=== PATIENT | male | born 1955 | race Caucasian/White ===

== ENCOUNTER 2020-01-18 19:43 | Inpatient (IN) | payer SELFPAY ==
[2020-01-18 19:44] VITALS: BP 141/90; PULSE 132; RESP 20; TEMP 39.6; O2SAT 99; BMI 19.9
--- NOTE | 2020-01-18 19:49 | XRR_ITS ---
PROCEDURE INFORMATION: Exam: XR Chest, 1 View Exam date and time: 01/18/2020 8:21 PM Age: 64 years old Clinical indication: Cough and shortness of breath and other: Weakness TECHNIQUE: Imaging protocol: XR of the chest Views: 1 view. COMPARISON: No relevant prior studies available. FINDINGS: Lungs: COPD/chronic bronchitis/centrilobular emphysema. Pleural space: Unremarkable. No pleural effusion. No pneumothorax. Heart/Mediastinum: Arterial sclerosis. No cardiomegaly. Bones/joints: Degenerative disease and degenerative disc disease of the visualized spine. XR/XR chest 1V portable [id number] IMPRESSION: COPD/chronic bronchitis/central lobular emphysema
--- NOTE | 2020-01-18 19:50 | ECG_ITS ---
Measurements Intervals [place] Rate: 131 P: 76 VT: 146 QRS: 64 QRSD: 65 T: 78 QT: 278 QTc: 410 SINUS TACHYCARDIA WITH OCCASIONAL SUPRAVENTRICULAR PREMATURE COMPLEXES ABNORMAL RHYTHM ECG No previous ECG available for comparison Electronically Signed On 01-19-2020 8:01:01 CDT by Wyatt Lakhani [email or web address]
--- NOTE | 2020-01-18 19:52 | W.ED.FEVER ---
HPI - Fever General: Chief Complaint: Fever Stated Complaint: fever x 1 week Time Seen by Provider: 01/18/20 19:45 History of Present Illness: HPI Narrative: Sherman is a nice 64-year-old male who comes in complaining of fever and muscle aches for the past week. He states he is not been wanting to eat or drink very much. He has had a mild intermittent headache but denies any neck pain or stiffness. He denies cough, shortness of breath, abdominal pain, nausea/vomiting, diarrhea, skin rash or other complaint. He denies any chronic medical problems and does not take any medications on a regular basis. He is not been exposed to anybody sick that he is aware of. Associated symptoms: Reports chills; Deny abdominal pain, back/flank pain, chest pain, confusion, diarrhea, dysuria, extremity pain, headache(s), nausea or vomiting Review of Systems General: Reports: other (negative unless marked) Const: Reports: fever, chills, body aches, fatigue and malaise; Denies: diaphoresis Eyes: Denies: change in vision or blurry vision ENMT: Denies: throat pain, painful swallowing, hoarseness, ear pain, ear discharge, Change in hearing or nasal discharge Card: Denies: chest pain, palpitations, irregular heart rhythm, syncope, pre-syncope, shortness of breath on exertion or shortness of breath when lying down Resp: Denies: shortness of breath, productive cough, non-productive cough, wheezing, coughing up blood or chest congestion GI: Denies: abdominal pain, nausea, vomiting, vomiting blood, coffee grounds in vomit, diarrhea, constipation, cramping, blood in stool or black tarry stool : Denies: flank pain, difficulty urinating, painful urination, urinary frequency, urinary urgency, decreased urine ouput, urinary incontinence or blood in urine Musc: Denies: neck pain, back pain, extremity pain, extremity swelling, joint pain, joint swelling, joint warmth or joint stiffness Skin/Breast: Denies: rash, skin tenderness or yellow skin Neuro: Denies: headache, numbness in extremities, weakness in extremities, changes in sensation, lack of coordination, difficulty walking, dizziness, vertigo or confusion Endo: Denies: excessive thirst, tired all the time, cold intolerance, excessive sweating, flushing or hot flashes Isaias/Lymph: Denies: easy bruising, easy bleeding, petechiae or enlarged lymph nodes All/Imm: Denies: hives, throat swelling, tongue swelling, facial swelling or acute wheezing PFSH ED PFSH: Medical History (Updated 01/19/20 @ 01:29 by Angela Arnold) No pertinent past medical history Social History Smoking and tobacco status: current every day smoker Physical Exam Const: COMMON NORMALS: no apparent distress, oriented x3, no limitations, healthy appearing and well nourished EXAM LIMITATIONS: no altered mental status GENERAL APPEARANCE: cooperative, well kempt and well developed ORIENTATION/CONSCIOUSNESS: Yes awake HENMT: COMMON NORMALS: normocephalic, head/scalp atraumatic, hearing grossly normal bilaterally, external ears normal, EAC's normal, external nose normal and moist oral mucous membranes HEAD & SCALP: normal to inspection, normocephalic and atraumatic FACE & SINUS: normal facial exam and face symmetric NOSE: external nose normal and nares normal EXTERNAL EAR: Yes external ears normal EXTERNAL AUDITORY CANAL: EAC's normal MOUTH: oral and palatal mucosa normal and tongue normal Eye: COMMON NORMALS: PERRL, EOMs intact bilaterally, conjunctivae normal and no scleral icterus GENERAL EYE: normal appearance of both eyes and normal light reflex CONJUNCTIVA: Yes conjunctivae normal SCLERA: sclerae normal CORNEA: Yes corneas normal PUPIL: Yes PERRL DIRECT OPHTHALMOSCOPY: Yes normal light reflex Neck/C-Spine: COMMON NORMALS: full ROM, no lymphadenopathy, supple, no meningeal signs and no JVD GENERAL: Yes normal visual inspection and Yes trachea midline CERVICAL SPINE: Yes cervical ROM normal Chest: COMMONS NORMALS: inspection of chest normal and palpation of chest normal Resp: COMMON NORMALS: normal respiratory effort, no retractions, no use of accessory muscles and clear to auscultation bilaterally EFFORT & INSPECTION: Yes able to speak in complete sentences AUSCULTATION: clear to auscultation bilaterally, rhonchi and wheezes Cardio: COMMON NORMALS: no JVD, regular rate, regular rhythm, S1 normal heart sound, S2 normal heart sound, no gallops, no clicks, no murmurs and no rub JUGULAR VENOUS DISTENTION: no JVD RATE: regular rate RHYTHM: regular rhythm HEART SOUNDS: S1 normal and S2 normal GI: COMMON NORMALS: soft to palpation, non-tender, no hepatosplenomegaly and no masses INSPECTION: Yes normal to inspection PALPATION: Yes soft and Yes no hepatosplenomegaly : COMMON NORMALS: Yes no CVA tenderness BLADDER/KIDNEY EXAM: Yes no CVA tenderness Back/Pelvis: COMMON NORMALS: no CVA tenderness, thoracic and lumbar spine normal to inspection, no thoracic nor lumbar tenderness and thoraco-lumbar ROM normal Extremity: COMMON NORMALS: normal to inspection, full ROM, normal capillary refill, no joint enlargement, no clubbing, cyanosis or edema and no calf tenderness Neuro: COMMON NORMALS: oriented x3, CN's II-XII intact bilaterally, moves all extremities, no focal motor deficits and no sensory deficits noted MENINGEAL SIGNS: Yes no meningeal signs Psych: COMMON NORMALS: mental status grossly normal, thought process normal, cooperative, affect normal, speech normal and activity/motor behavior normal APPEARANCE: Yes well kempt SPEECH: Yes normal speech THOUGHT PROCESS: normal thought process Skin: COMMON NORMALS: no rashes or lesions noted, skin turgor normal, no jaundice, no petechiae and no mottling GENERAL SKIN EXAM: no rashes or lesions noted and turgor normal Course Vital Signs: Vital signs: Vital Signs Temperature 97.8 F 01/19/20 00:50 Pulse Rate 96 01/19/20 00:50 Respiratory Rate 24 H 01/19/20 00:50 Blood Pressure 101/67 01/19/20 00:50 Pulse Oximetry 96 01/19/20 00:50 MDM - Fever MDM Narrative: Medical decision making narrative: Mr. Greenwood is a nice 64-year-old male who comes in with a viral syndrome. His initial chest x-ray looks normal to me and his chest x-ray was read by the radiologist as normal. I did call the residential real estate assistant to confer about the possibility of COVID-19 and they stated that the patient did not meet criteria and did not need to be treated as such. Took the patient off of precautions and presented the case to Dr. Lindsey who wanted a CT scan to evaluate for the acute renal failure and UTI. CT scan did not show any sign of obstruction or renal problem but did reveal a left lower lobe pneumonia not seen on chest x-ray. The patient was given empiric doses of antibiotics. He was getting fluid boluses and his pressure was improving. The patient had gone to the floor before Dr. Lindsey had a chance to see him but after conferring with me again she wanted the patient tested by [facility] for COVID-19 and I notified the salesperson household appliances that the patient might need to be placed back on respiratory precautions until the results of this test were available. Lab Data: Attestation: I reviewed the patient's lab results. Labs: Lab Results 01/18/20 01/18/20 01/18/20 Range/Units 20:10 20:10 20:10 WBC 6.9 (4.0-10.0) 10^3/ uL RBC 4.61 (4.1-5.3) 10^6/u L Hgb 16.1 (11.7-16.6) g/dL Hct 47.0 (42.0-52.0) % MCV 102.0 H (80-94) fL MCH 34.9 H (28.0-34.0) pg MCHC 34.3 (30.0-36.0) g/dL RDW 12.0 L (12.1-15.1) % Plt Count 97 L (130-400) 10^3/c mm MPV 10.3 (7.4-10.4) fL Neut % (Auto) 90.8 % Lymph % (Auto) 2.6 % Schley % (Auto) 3.5 % Eos % (Auto) 0.0 % Baso % (Auto) 0.6 % Neut # (Auto) 6.3 (1.8-7.7) 10^3/u L Lymph # (Auto) 0.2 L (0.8-4.8) 10^3/u L Schley # (Auto) 0.2 (0.2-0.9) 10^3/u L Eos # (Auto) 0.0 (0.0-0.8) 10^3/u L Baso # (Auto) 0.0 (0.0-0.1) 10^3/u L Nucleated RBC % (a uto) 0 % Nucleated RBCs # 0.0 /100WBC Sodium 127 L (136-145) mmol/L Potassium 3.3 L (3.5-5.1) mmol/L Chloride 91 L (98-107) mmol/L Carbon Dioxide 15 L (22-29) mmol/L Anion Gap 24.3 H (5-19) BUN 33 H (8-23) mg/dL Creatinine 2.1 H (0.7-1.2) mg/dL GFR Calculation 32.0 L (90-130) mL/min Glucose 121 H (65-115) mg/dL Calculated Osmolal ity 263 L (285-295) mOsm/k g Lactic Acid 1.5 (0.5-2.2) mmol/L Calcium 8.5 (8.5-10.5) mg/dL Magnesium 2.6 H (1.7-2.3) mg/dL Total Bilirubin 0.3 (0.15-1.2) mg/dL AST 213 H (0-40) U/L ALT 41 (0-41) U/L Alkaline Phosphata se 36 L (40-130) IU/L Troponin T Baselin e (0-15) ng/mL Troponin T 120 Min [place] (0-15) ng/mL Delta Troponin T (0-10) ABS# Total Protein 6.0 L (6.6-8.7) g/dL Albumin 3.4 L (3.5-5.2) g/dL Globulin 2.6 (1.3-4.6) g/dL Urine Color (Yellow) Urine Appearance (CLEAR) Urine pH (5-7) Ur Specific Gravit y (1.005-1.030) Urine Protein (Negative) Urine Glucose (UA) (Normal) Urine Ketones (Negative) Urine Blood (Negative) Urine Nitrate (Negative) Urine Bilirubin (NEGATIVE) Urine Urobilinogen (Negative) mg/dL Ur Leukocyte Laura ase (Negative) Urine RBC (0-2) /hpf Urine WBC (0-5) /hpf Ur Squamous Epith Cells (0-5) Urine Bacteria (NONE) Fine Granular Cast s /lpf Influenza Type A A g (Negative) POC Influenza B Ag (Negative) 01/18/20 01/18/20 01/18/20 Range/Units 20:10 21:09 21:12 WBC (4.0-10.0) 10^3/ uL RBC (4.1-5.3) 10^6/u L Hgb (11.7-16.6) g/dL Hct (42.0-52.0) % MCV (80-94) fL MCH (28.0-34.0) pg MCHC (30.0-36.0) g/dL RDW (12.1-15.1) % Plt Count (130-400) 10^3/c mm MPV (7.4-10.4) fL Neut % (Auto) % Lymph % (Auto) % Schley % (Auto) % Eos % (Auto) % Baso % (Auto) % Neut # (Auto) (1.8-7.7) 10^3/u L Lymph # (Auto) (0.8-4.8) 10^3/u L Schley # (Auto) (0.2-0.9) 10^3/u L Eos # (Auto) (0.0-0.8) 10^3/u L Baso # (Auto) (0.0-0.1) 10^3/u L Nucleated RBC % (a uto) % Nucleated RBCs # /100WBC Sodium (136-145) mmol/L Potassium (3.5-5.1) mmol/L Chloride (98-107) mmol/L Carbon Dioxide (22-29) mmol/L Anion Gap (5-19) BUN (8-23) mg/dL Creatinine (0.7-1.2) mg/dL GFR Calculation (90-130) mL/min Glucose (65-115) mg/dL Calculated Osmolal ity (285-295) mOsm/k g Lactic Acid (0.5-2.2) mmol/L Calcium (8.5-10.5) mg/dL Magnesium (1.7-2.3) mg/dL Total Bilirubin (0.15-1.2) mg/dL AST (0-40) U/L ALT (0-41) U/L Alkaline Phosphata se (40-130) IU/L Troponin T Baselin e 96 H (0-15) ng/mL Troponin T 120 Min [place] (0-15) ng/mL Delta Troponin T (0-10) ABS# Total Protein (6.6-8.7) g/dL Albumin (3.5-5.2) g/dL Globulin (1.3-4.6) g/dL Urine Color Dark yellow (Yellow) Urine Appearance Cloudy (CLEAR) Urine pH 5 (5-7) Ur Specific Gravit y 1.025 (1.005-1.030) Urine Protein Trace (Negative) Urine Glucose (UA) Norm (Normal) Urine Ketones Negative (Negative) Urine Blood 3+ H (Negative) Urine Nitrate Negative (Negative) Urine Bilirubin Neg (NEGATIVE) Urine Urobilinogen Norm (Negative) mg/dL Ur Leukocyte Laura ase Negative (Negative) Urine RBC 0-4 H (0-2) /hpf Urine WBC 5-10 H (0-5) /hpf Ur Squamous Epith Cells 0-4 H (0-5) Urine Bacteria 2+ H (NONE) Fine Granular Cast s 0-4 H /lpf Influenza Type A A g Negative (Negative) POC Influenza B Ag Negative (Negative) 01/18/20 Range/Units 21:58 WBC (4.0-10.0) 10^3/ uL RBC (4.1-5.3) 10^6/u L Hgb (11.7-16.6) g/dL Hct (42.0-52.0) % MCV (80-94) fL MCH (28.0-34.0) pg MCHC (30.0-36.0) g/dL RDW (12.1-15.1) % Plt Count (130-400) 10^3/c mm MPV (7.4-10.4) fL Neut % (Auto) % Lymph % (Auto) % Schley % (Auto) % Eos % (Auto) % Baso % (Auto) % Neut # (Auto) (1.8-7.7) 10^3/u L Lymph # (Auto) (0.8-4.8) 10^3/u L Schley # (Auto) (0.2-0.9) 10^3/u L Eos # (Auto) (0.0-0.8) 10^3/u L Baso # (Auto) (0.0-0.1) 10^3/u L Nucleated RBC % (a uto) % Nucleated RBCs # /100WBC Sodium (136-145) mmol/L Potassium (3.5-5.1) mmol/L Chloride (98-107) mmol/L Carbon Dioxide (22-29) mmol/L Anion Gap (5-19) BUN (8-23) mg/dL Creatinine (0.7-1.2) mg/dL GFR Calculation (90-130) mL/min Glucose (65-115) mg/dL Calculated Osmolal ity (285-295) mOsm/k g Lactic Acid (0.5-2.2) mmol/L Calcium (8.5-10.5) mg/dL Magnesium (1.7-2.3) mg/dL Total Bilirubin (0.15-1.2) mg/dL AST (0-40) U/L ALT (0-41) U/L Alkaline Phosphata se (40-130) IU/L Troponin T Baselin e (0-15) ng/mL Troponin T 120 Min [place] 110.2 H (0-15) ng/mL Delta Troponin T 14.2 H* (0-10) ABS# Total Protein (6.6-8.7) g/dL Albumin (3.5-5.2) g/dL Globulin (1.3-4.6) g/dL Urine Color (Yellow) Urine Appearance (CLEAR) Urine pH (5-7) Ur Specific Gravit y (1.005-1.030) Urine Protein (Negative) Urine Glucose (UA) (Normal) Urine Ketones (Negative) Urine Blood (Negative) Urine Nitrate (Negative) Urine Bilirubin (NEGATIVE) Urine Urobilinogen (Negative) mg/dL Ur Leukocyte Laura ase (Negative) Urine RBC (0-2) /hpf Urine WBC (0-5) /hpf Ur Squamous Epith Cells (0-5) Urine Bacteria (NONE) Fine Granular Cast s /lpf Influenza Type A A g (Negative) POC Influenza B Ag (Negative) Imaging Data^: CXR: My impression: No acute cardiopulmonary findings Radiologist's impression: [address] [place] [address] XRay Report Signed Patient: Sherman Greenwood Unit #: [id number] : 1955 Age/Sex: 64 / M ADM Date: 01/18/20 Loc: ER Room/Bed: Attending Dr: Ordering Provider/Ordering MD: Angela Arnold DO Date of Service: 01/18/20 Procedure(s): XR chest 1V portable [id number] Accession Number(s): [id number] Report Number: [id number] PROCEDURE INFORMATION: Exam: XR Chest, 1 View Exam date and time: 01/18/2020 8:21 PM Age: 64 years old Clinical indication: Cough and shortness of breath and other: Weakness TECHNIQUE: Imaging protocol: XR of the chest Views: 1 view. COMPARISON: No relevant prior studies available. FINDINGS: Lungs: COPD/chronic bronchitis/centrilobular emphysema. Pleural space: Unremarkable. No pleural effusion. No pneumothorax. Heart/Mediastinum: Arterial sclerosis. No cardiomegaly. Bones/joints: Degenerative disease and degenerative disc disease of the visualized spine. XR/XR chest 1V portable [id number] IMPRESSION: COPD/chronic bronchitis/central lobular emphysema Dictated By: Omari Kim Signed By: Omari Kim Signed Date/Time: 01/18/202037 DD/ 35 CT Abd/Pel: Radiologist's impression: [place] [address] CT Scan Report Signed Patient: Sherman Greenwood Unit #: [id number] : 1955 Age/Sex: 64 / M ADM Date: 01/18/20 Loc: ER Room/Bed: Attending Dr: Ordering Provider/Ordering MD: Angela Arnold DO Date of Service: 01/18/20 Procedure(s): CT kidney stone [id number] Accession Number(s): [id number] Report Number: [id number] PROCEDURE INFORMATION: Exam: CT Abdomen And Pelvis Without Contrast Exam date and time: 01/18/2020 11:26 PM Age: 64 years old Clinical indication: Abdominal pain; Right; Patient HX: Bilat flank pain; Additional info: Flank/abdominal pain TECHNIQUE: Imaging protocol: Computed tomography of the abdomen and pelvis without contrast. Total DLP: 513.77 mGy-cm Radiation optimization: All CT scans at this facility use at least one of these dose optimization techniques: automated exposure control; mA and/or kV adjustment per patient size (includes targeted exams where dose is matched to clinical indication); or iterative reconstruction. COMPARISON: No relevant prior studies available. FINDINGS: Lungs: Limited assessment lung bases reveals a densely consolidated alveolar airspace disease process of multi segmental volume left lower lobe with air bronchograms consistent with left lower lobe pneumonia. COPD/chronic bronchitis. Minimal dependent atelectasis right lung base. Liver: Unremarkable. No mass. Gallbladder and bile ducts: Gallbladder contracted. No visible cholelithiasis. No visible intra or extrahepatic biliary ectasia. No visible choledocholithiasis. Pancreas: Pancreas unremarkable. No visible pancreatic ductal ectasia. Spleen: Calcified splenic granulomas. Adrenals: Adrenal glands unremarkable. Kidneys and ureters: No visible hydronephrosis, hydroureter, ureterolithiasis, or bladder stone. Note of a 3.6 mm nonobstructing calyceal nephrolithiasis at the equator and a 2nd small (less than 3 mm) nonobstructing calyceal nephrolithiasis focus inferior pole left kidney. No visible nephrocalcinosis. Stomach and bowel: Nonobstructive bowel pattern. No visible diverticulitis or significant diverticulosis coli. No visible adynamic or reactive ileus. Appendix: Appendix noninflamed. Intraperitoneal space: No visible intraperitoneal ascites. No visible mesenteric lymphadenitis or mesenteritis/panniculitis. Vasculature: Three-vessel coronary artery disease. The abdominal aorta is nonaneurysmal but demonstrates extensive arterial sclerotic disease. Lymph nodes: Unremarkable. No enlarged lymph nodes. Bladder: Unremarkable as visualized. Reproductive: Prostate hypertrophy. Bones/joints: Previous right hip pinning. Advanced degenerative disease and degenerative disc disease with disc space height loss and vacuum disc phenomenon L3/L4 and L5/S1. Facet arthrosis. Soft tissues: Unremarkable. CT/CT kidney stone [id number] IMPRESSION: 1. Left lower lobe pneumonia. 2. No visible active or acute abdominal or pelvic pathologic process. 3. Nonobstructing calyceal nephrolithiasis foci left kidney. 4. No evidence of hydronephrosis, hydroureter, or ureterolithiasis. 5. Numerous other non urgent/nonemergent, chronic, and age related findings discussed in text above. Radiation Dose CTDIVOL = (mGy): DLP = 513.77 (mGy-cm) Dictated By: Omari Kim Signed By: Omari Kim Signed Date/Time: 01/19/20 0001 DD/ 0000 Discharge Plan Discharge Patient Disposition: Admitted As Inpatient Admit Provider: Jen Lindsey Clinical Impression: Sepsis, Pneumonia, Acute UTI Condition: Stable Interventions: ED Discharge Assessment Last Done: 01/19/20 00:26 Discharge Date/Time: 01/19/20 00:41 Coding Level of Care Code ED Entertainment Manager for [employer] Fwd Exam Comprehensive
[2020-01-18] MEDS: acetaminophen 500 mg Tablet 1000 MG PO (20:21)
[2020-01-18] MEDS: ondansetron 2 mg/ML SDV 2 mL 4 MG IVP ×2 (20:21→21:13)
[2020-01-18] MEDS: piperacillin-tazobactam 3.375 GM in sodium chloride 0.9% (plus) 50 ML IV (20:21)
[2020-01-18 20:22] LABS: Basophils % 0.6 %; Hemoglobin 16.1 g/dL (11.7-16.6); Lymphocytes # 0.2 10^3/uL (0.8-4.8); Lymphocytes % 2.6 %; Mean Corpuscular HGB Conc 34.3 g/dL (30.0-36.0); Mean Corpuscular Hemoglobin 34.9 pg (28.0-34.0); Mean Platelet Volume 10.3 fL (7.4-10.4); Monocytes # 0.2 10^3/uL (0.2-0.9); Monocytes % 3.5 %; Neutrophils # 6.3 10^3/uL (1.8-7.7); Neutrophils % 90.8 %; Nucleated Red Blood Cells % 0 %; Platelet Count 97 10^3/cmm (130-400); Red Blood Count 4.61 10^6/uL (4.1-5.3); White Blood Count 6.9 10^3/uL (4.0-10.0)
[2020-01-18 20:37] LABS: Lactic Sepsis W/Reflex 1.5 mmol/L (0.5-2.2); Troponin(5th) Baseline 96 ng/mL (0-15)
[2020-01-18 20:49] LABS: Alanine Aminotransferase 41 U/L (0-41); Albumin Level 3.4 g/dL (3.5-5.2); Alkaline Phosphatase 36 IU/L (40-130); Anion Gap 24.3 (5-19); Aspartate Amino Transferase 213 U/L (0-40); Blood Urea Nitrogen 33 mg/dL (8-23); Calcium 8.5 mg/dL (8.5-10.5); Carbon Dioxide 15 mmol/L (22-29); Chloride 91 mmol/L (98-107); Globulin 2.6 g/dL (1.3-4.6); Glucose 121 mg/dL (65-115); Magnesium 2.6 mg/dL (1.7-2.3); Osmolality Calculated 263 mOsm/kg (285-295); Potassium 3.3 mmol/L (3.5-5.1); Sodium 127 mmol/L (136-145); Total Bilirubin 0.3 mg/dL (0.15-1.2)
--- NOTE | 2020-01-18 21:50 | ECG_ITS ---
Measurements Intervals [place] Rate: 102 P: 78 CA: 147 QRS: 75 QRSD: 63 T: 69 QT: 347 QTc: 454 SINUS TACHYCARDIA WITH OCCASIONAL SUPRAVENTRICULAR PREMATURE COMPLEXES ABNORMAL RHYTHM ECG No previous ECG available for comparison Electronically Signed On 01-19-2020 8:09:56 CDT by Wyatt Lakhani [id number]
[2020-01-18 22:03] VITALS: TEMP 37.7
[2020-01-18 22:05] LABS: Influenza A by IFA Negative (Negative); Influenza B by IFA Negative (Negative)
[2020-01-18 22:26] LABS: Bacteria Urine 2+; Bilirubin Urine Neg (NEGATIVE); Blood Urine 3+ (Negative); Fine Granular Casts Urine 0-4 /lpf; Glucose Urine UA Norm (Normal); Ketones Urine Negative (Negative); Leukocyte Esterase Urine Negative (Negative); Nitrate Urine Negative (Negative); Protein Urine Trace (Negative); RBC Urine 0-4 /hpf (0-2); Specific Gravity, Urine 1.025 (1.005-1.030); Squamous Epithelial Cell Urine 0-4 (0-5); Urine Appearance Cloudy (CLEAR); Urine Color Dark Yellow (Yellow); Urobilinogen Urine Norm (Negative); pH Urine 5 (5-7)
[2020-01-18 22:27] LABS: Add Urine Culture? No
[2020-01-18 22:46] VITALS: BP 89/60; PULSE 90; O2SAT 94
[2020-01-18 22:54] LABS: Troponin 5 2HR 110.2 ng/mL (0-15); Troponin 5 2HR Delta 14.2 ABS# (0-10)
[2020-01-18 23:00] VITALS: BP 91/59; PULSE 96; RESP 20; O2SAT 95
--- NOTE | 2020-01-18 23:25 | CTR_ITS ---
PROCEDURE INFORMATION: Exam: CT Abdomen And Pelvis Without Contrast Exam date and time: 01/18/2020 11:26 PM Age: 64 years old Clinical indication: Abdominal pain; Right; Patient HX: Bilat flank pain; Additional info: Flank/abdominal pain TECHNIQUE: Imaging protocol: Computed tomography of the abdomen and pelvis without contrast. Total DLP: 513.77 mGy-cm Radiation optimization: All CT scans at this facility use at least one of these dose optimization techniques: automated exposure control; mA and/or kV adjustment per patient size (includes targeted exams where dose is matched to clinical indication); or iterative reconstruction. COMPARISON: No relevant prior studies available. FINDINGS: Lungs: Limited assessment lung bases reveals a densely consolidated alveolar airspace disease process of multi segmental volume left lower lobe with air bronchograms consistent with left lower lobe pneumonia. COPD/chronic bronchitis. Minimal dependent atelectasis right lung base. Liver: Unremarkable. No mass. Gallbladder and bile ducts: Gallbladder contracted. No visible cholelithiasis. No visible intra or extrahepatic biliary ectasia. No visible choledocholithiasis. Pancreas: Pancreas unremarkable. No visible pancreatic ductal ectasia. Spleen: Calcified splenic granulomas. Adrenals: Adrenal glands unremarkable. Kidneys and ureters: No visible hydronephrosis, hydroureter, ureterolithiasis, or bladder stone. Note of a 3.6 mm nonobstructing calyceal nephrolithiasis at the equator and a 2nd small (less than 3 mm) nonobstructing calyceal nephrolithiasis focus inferior pole left kidney. No visible nephrocalcinosis. Stomach and bowel: Nonobstructive bowel pattern. No visible diverticulitis or significant diverticulosis coli. No visible adynamic or reactive ileus. Appendix: Appendix noninflamed. Intraperitoneal space: No visible intraperitoneal ascites. No visible mesenteric lymphadenitis or mesenteritis/panniculitis. Vasculature: Three-vessel coronary artery disease. The abdominal aorta is nonaneurysmal but demonstrates extensive arterial sclerotic disease. Lymph nodes: Unremarkable. No enlarged lymph nodes. Bladder: Unremarkable as visualized. Reproductive: Prostate hypertrophy. Bones/joints: Previous right hip pinning. Advanced degenerative disease and degenerative disc disease with disc space height loss and vacuum disc phenomenon L3/L4 and L5/S1. Facet arthrosis. Soft tissues: Unremarkable. CT/CT kidney stone [id number] IMPRESSION: 1. Left lower lobe pneumonia. 2. No visible active or acute abdominal or pelvic pathologic process. 3. Nonobstructing calyceal nephrolithiasis foci left kidney. 4. No evidence of hydronephrosis, hydroureter, or ureterolithiasis. 5. Numerous other non urgent/nonemergent, chronic, and age related findings discussed in text above. Radiation Dose CTDIVOL = (mGy): DLP = 513.77 (mGy-cm)
[2020-01-18 23:47] VITALS: BP 96/72; PULSE 84; RESP 18; O2SAT 97
[2020-01-19] VITALS (116 sets, daily range): BP systolic 86–148; BP diastolic 50–93; PULSE 76–144; RESP 14–46; TEMP 36.6–38.4; O2SAT 81–100
--- NOTE | 2020-01-19 01:50 | ECG_ITS ---
Measurements Intervals [place] Rate: 99 P: 89 FL: 161 QRS: 74 QRSD: 66 T: 77 QT: 359 QTc: 461 SINUS RHYTHM WITH FREQUENT SUPRAVENTRICULAR PREMATURE COMPLEXES LOW QRS VOLTAGE IN PRECORDIAL LEADS [QRS DEFLECTION < 1.0 mV IN CHEST LEADS] ABNORMAL RHYTHM ECG No previous ECG available for comparison Electronically Signed On 01-19-2020 8:09:52 CDT by Wyatt Lakhani [id number]
[2020-01-19] MEDS: sodium chloride 0.9% 1,000 ML 150 ML IV ×2 (01:53→09:36)
--- NOTE | 2020-01-19 01:55 | PC.NURSE ---
patient transferred to room 1 for private room for patient safety measures. this nurse informed patient that due to the pending labs, nurses would be clustering care. nurse explained to patient that he has his call light and telephone at bedside to communicate with staff and family members at this time. patient expressed that he understood and agreed with plan.
[2020-01-19 02:50] LABS: Basophils % 0.3 %; Hematocrit 41.2 % (42.0-52.0); Lymphocytes # 0.4 10^3/uL (0.8-4.8); Lymphocytes % 6.1 %; Mean Corpuscular Hemoglobin 34.5 pg (28.0-34.0); Mean Corpuscular Volume 101.5 fL (80-94); Mean Platelet Volume 10.5 fL (7.4-10.4); Monocytes # 0.2 10^3/uL (0.2-0.9); Monocytes % 3.3 %; Neutrophils # 5.1 10^3/uL (1.8-7.7); Neutrophils % 88.6 %; Nucleated Red Blood Cells % 0 %; Platelet Count 89 10^3/cmm (130-400); Red Blood Count 4.06 10^6/uL (4.1-5.3); Red Cell Distribution Width 12.2 % (12.1-15.1); White Blood Count 5.7 10^3/uL (4.0-10.0)
[2020-01-19 03:15] LABS: Anion Gap 18.2 (5-19); Blood Urea Nitrogen 31 mg/dL (8-23); Calcium 7.4 mg/dL (8.5-10.5); Carbon Dioxide 20 mmol/L (22-29); Chloride 95 mmol/L (98-107); Glomerular Filtration Rate 40.8 mL/min (90-130); Glucose 110 mg/dL (65-115); Osmolality Calculated 268 mOsm/kg (285-295); Potassium 3.2 mmol/L (3.5-5.1); Sodium 130 mmol/L (136-145)
[2020-01-19 03:18] LABS: Troponin 5 6HR 77.54 ng/mL (0-15)
[2020-01-19 03:19] LABS: Troponin 5 6HR Delta -18.46 ng/L (0-12)
--- NOTE | 2020-01-19 03:29 | P.HP_ITS ---
Providers/Chief Complaint Admitting Physician: Jen Lindsey MD Chief Complaint: fever x 1 week History of Present Illness Sherman Greenwood is a 64 year old male without any significant PMH (has not seen a HCP in several years) presents with one week of fever and dry cough. It is somewhat difficult to obtain a history from him as he remains guarded with information. States that fever and chils started about a week ago. he has additionally been having intermittent diarrhea over this same period, which is unusual for him. C/o also of chronic cough which he attributes to smoking, without any recent worsening. No h/o expectoration. weakness, fatigue+. Today his brother in law came to visit him, noted him to be sick and called EMS. patient otherwise lives by himself. No recent h/o travel, no h/o sick contacts Upon arrival at Er he was noted to be tremulous, febrile to 103F, 02 sat 96-99% on room air. His plt count is at 89, however he appears to have a baseline thrombocytopenia. No leukocytosis. Labs notable for hyponatremia with Na 127, hypokalemia K 3.3, Kali with cr 2.1, elevated tropin with 2 hr delta of 14 and then 6 hr delta of -18. AST elevated at 213, UA with negative LA and nitrite. Wbc 5-10. Ct abdomen without acute abnormalities, however revealed LLL pneumonia. Daily smoker+. Daily alcohol intake+ 3-5 beers everyday. Review of Systems General: Reports: 10 or more systems reviewed and unremarkable except in HPI and below Const: Reports: fever, chills and body aches Eyes: Denies: change in vision, blurry vision or photophobia ENMT: Reports: hoarseness; Denies: throat pain, enlarged tonsils, painful swallowing or nasal congestion Card: Denies: chest pain, palpitations, irregular heart rhythm, edema, swelling of feet/ankles, lightheadedness, pre-syncope, shortness of breath on exertion or shortness of breath when lying down Resp: Reports: shortness of breath and non-productive cough; Denies: productive cough, wheezing, stridor, pain on inspiration, change in phlegm color, coughing up blood or chest congestion GI: Denies: abdominal pain, nausea, vomiting, vomiting blood, coffee grounds in vomit, difficulty swallowing, heartburn/indigestion, diarrhea, constipation, cramping, change in stool character, blood in stool or black tarry stool : Denies: flank pain, painful urination, urinary frequency, urinary urgency, urinary hesitancy or blood in urine Musc: Denies: neck pain, back pain, extremity pain, joint swelling, joint warmth or deformity Neuro: Denies: headache, numbness in extremities, weakness in extremities, changes in sensation, difficulty walking, frequent falls, dizziness, vertigo, behavioral changes, slurred speech or seizure-like activity Psych: Denies: anxiety, depression, suicidal ideation or homicidal ideation Endo: Denies: excessive urination, excessive thirst, tired all the time, cold intolerance or hot flashes Isaias/Lymph: Denies: easy bruising or easy bleeding Medications/Allergies Home Medications Medication Instructions Recorded Confirmed Last Taken Type acetaminophen-codeine 1 tab PO Q4H PRN 01/18/20 01/18/20 Unknown History [Tylenol-Codeine #4] Allergies Allergy/AdvReac Type Severity Reaction Status Date / Time meperidine [From Demerol] Allergy ADR-Nausea Verified 01/18/20 19:53 PFSH Acute PFSH: Medical History (Updated 01/19/20 @ 03:58 by Jen Lindsey MD) No pertinent past medical history Surgical History History of right hip replacement Social History Smoking and tobacco status: current every day smoker Vitals/I&O/Wt Last Vital Signs Temp 97.8 F 01/19/20 00:50 Pulse 96 01/19/20 00:50 Resp 24 H 01/19/20 00:50 BP 101/67 01/19/20 00:50 Pulse Ox 96 01/19/20 00:50 01/18/20 01/18/20 01/19/20 14:59 22:59 06:59 Intake Total 1890.8 / 1890.8 Balance 1890.8 / 1890.8 Weight last 48 hrs Weight 61.235 kg Physical Exam Narrative: EXAM NARRATIVE: GEN: Awake, alert and oriented, no acute distress CVS: S1S2 N RS: CTA B/L, coarse crepts left lower lobe. Abd: Soft, nt/nd , bs+ MAINTENANCE TEAM MEMBER: no focal neuro deficits Data : 01/19/20 02:31 01/19/20 02:31 Micro: Microbiology 01/18/20 20:16 Blood Culture - Preliminary Blood SPECIMEN COLLECTED 01/18/20 20:10 Blood Culture - Preliminary Blood SPECIMEN COLLECTED A&P Assessment and plan (1) Sepsis: Status: Acute Qualifiers: Acute renal failure type: unspecified Sepsis acute organ dysfunction status: with acute organ dysfunction Sepsis type: sepsis due to unspecified organism Severe sepsis acute organ dysfunction type: acute renal failure Severe sepsis shock status: without septic shock Qualified Code(s): A41.9 - Sepsis, unspecified organism; R65.20 - Severe sepsis without septic shock; N17.9 - Acute kidney failure, unspecified Code(s): A41.9 - Sepsis, unspecified organism (2) Pneumonia: Status: Acute Qualifiers: Laterality: left Lung location: lower lobe of lung Pneumonia type: due to unspecified organism Qualified Code(s): J18.9 - Pneumonia, unspecified organism Code(s): J18.9 - Pneumonia, unspecified organism (3) Alcohol withdrawal: Status: Acute Code(s): F10.239 - Alcohol dependence with withdrawal, unspecified (4) KALI (acute kidney injury): Status: Acute Code(s): N17.9 - Acute kidney failure, unspecified (5) Hyponatremia: Status: Acute Code(s): E87.1 - Hypo-osmolality and hyponatremia (6) Hypokalemia: Status: Acute Code(s): E87.6 - Hypokalemia (7) Demand ischemia: Status: Acute Code(s): I24.8 - Other forms of acute ischemic heart disease (8) Thrombocytopenia: Status: Acute Code(s): D69.6 - Thrombocytopenia, unspecified Additional A&P Information Admit to CSU 1. Sepsis likely secondary to LLL pneumonia Meets criteria with fever, tachycardia, tachypnea Initial BP with SBP 90s, improved after 2L IVF, currently at 101/67 Continue IVF @ 150cc/hr Started on Zosyn in the Er, will continue same for now. Add azithromycin 500mg x 3 days Influenza negative. Albuterol inhalation prn supplemetal 02 to keep 02 sat > 92% COVID 19 initially declined by state based on negative CXR in spite of fever and respiratory symptoms. ERP attempted to call back state with updated information regarding pneumonia noted on CT, however there was no response. Will send COVID 19 testing to [facility]. Maintain isolation precautions until then. Blood cx sputum gram stain and cx MRSA PCR screen 2. KALI likely 2/2 sepsis, IVF as above, trend cr 3. troponin leak, no acute St-t changes on EKG, baseline troponin 110, first delta 14, 6 hr delta negative. Likely represents demand ischemia from sepsis. 3. Visible tremors, patient reports feeling cold, however tremors noticeable even after fever resolved, suspect component of alcohol withdrawal CIWA monitoring with prn ativan drinks 3-5 beers daily 4. nicotine dependence : offered nicotine patch but declined 5. thrombocytopenia, appears to be chronic DVt ppx: heparin for now, may need to be discontinued based on platelet count trend Full code Attestations Medical Necessity Statement*: anticipate > 2midnight admission for sepsis, pneumonia, iv antibiotics Coding Level of Care Code Acute Controller Operations And Hr Manager for [facility] Fwd Diagnoses Sepsis A41.9; R65.20; N17.9 Acute renal failure type: unspecified Sepsis acute organ dysfunction status: with acute organ dysfunction Sepsis type: sepsis due to unspecified organism Severe sepsis acute organ dysfunction type: acute renal failure Severe sepsis shock status: without septic shock Pneumonia J18.9 Laterality: left Lung location: lower lobe of lung Pneumonia type: due to unspecified organism Alcohol withdrawal F10.239 KALI (acute kidney injury) N17.9 Hyponatremia E87.1 Hypokalemia E87.6 Demand ischemia I24.8 Thrombocytopenia D69.6
[2020-01-19] MEDS: ipratropium-albuterol 3 mL Neb INHALATION ×5 (04:26→21:00)
[2020-01-19 04:38] LABS: Amphetamines Screen Urine Negative (Negative); Barbiturates Screen Urine Negative (Negative); Benzodiazepines Screen Urine Negative (Negative); Cocaine Screen Urine Negative (Negative); Opiate Screen Urine Negative (Negative); PCP Screen Urine Negative (Negative); THC Screen Urine Negative (Negative)
[2020-01-19 04:39] LABS: Alanine Aminotransferase 41 U/L (0-41); Albumin Level 2.7 g/dL (3.5-5.2); Alkaline Phosphatase 30 IU/L (40-130); Aspartate Amino Transferase 225 U/L (0-40); Chol HDL Ratio 2.63 mg/dL (1.0-5.00); Cholesterol 71 mg/dL (0-200); HDL Cholesterol 27 mg/dL (60-100); LDL Cholesterol Calculated 24 mg/dL (50-129); LDL HDL Ratio 0.89 RATIO (0.00-3.22); Lipase 33 U/L (13-60); Total Bilirubin 0.3 mg/dL (0.15-1.2); Triglycerides 102 mg/dL (0-150)
[2020-01-19 04:40] LABS: Estmated Average Glucose 117; Hemoglobin A1C 5.7 % (4.0-6.0)
[2020-01-19 04:48] LABS: Alcohol Level < 10 mg/dL (0-10)
--- NOTE | 2020-01-19 05:08 | PC.NURSE ---
upon entering room, patient noted to be trembling and slightly diaphoretic. CIWA performed on patient and patient scored a 7. notified of patient score/ how patient presents. verbal order for 0.5mg Ativan oral NOW given by doctor.
[2020-01-19] MEDS: LORazepam 0.5 mg Tablet PO (05:16)
[2020-01-19] MEDS: heparin 5,000 unit/mL INJ 1 mL 5000 UNIT SUBCUT ×2 (05:17→15:57)
[2020-01-19] MEDS: piperacillin-tazobactam 3.375 GM in sodium chloride 0.9% (plus) 50 ML IV ×3 (05:17→19:47)
[2020-01-19] MEDS: acetaminophen 325 mg Tablet 650 MG PO ×2 (05:40→11:19)
--- NOTE | 2020-01-19 05:51 | PC.NURSE ---
upon entering the room patient asked got your partner with you again? nurse was alone in room. explained to patient that it was just this nurse. patient has temp of 101.1. Tylenol given per PRN order. patient knows he is at [facility] and knows his name/. patient believes he has the covid virus and states that it tastes peperish . notified of patient change in mental status.
--- NOTE | 2020-01-19 06:37 | PC.NURSE ---
upon entering the room patient was half way out of the bed.patients phone was on the ground and patient he was trying to get it. patient stated that the brownies over there . informed patient that if he needs to get out of bed to press the call light. CIWA reassessed by this nurse and now rates at an 8. patient is able to state his name//todays date. patients temp is now 101.2 orally. this nurse recommends a room closer to the nurses station or transfer to ICU for patient safety and closer monitoring. notified of patient attempting to get out of bed and temp. to come see.
[2020-01-19] MEDS: azithromycin 250 mg Tablet 500 MG PO (09:07)
[2020-01-19] MEDS: multivitamin therapeutic Tablet 1 TAB PO (09:07)
[2020-01-19] MEDS: thiamine 100 mg Tablet PO (09:08)
[2020-01-19] MEDS: folic acid 1 mg Tablet PO (09:08)
[2020-01-19] MEDS: lactated ringers 1,000 ML 999 ML ×2 (09:23→14:06)
[2020-01-19] MEDS: LORazepam 2 mg/mL INJ 1 mL 1 MG IM (10:07)
[2020-01-19 10:31] LABS: ABG PCO2 29.7 mmHg (35-45); ABG PH Result 7.34 (7.35-7.45); Arterial Blood Gas Hematocrit 50.3 % (42-52); Base Excess ABG -8.1 mmol/L (-2.0-2.0); Blood Gas Allen Test Pos; Blood Gas Sample Site Radial, right; Blood Gas Sample Type Arterial; HCO3 ABG 16.1 mmol/L (22-26); Oxygen Device NC
[2020-01-19] MEDS: potassium chloride premix 40 MEQ/100 ML PREMIX 25 MEQ IV (10:35)
--- NOTE | 2020-01-19 10:35 | USCV_ITS ---
Sherman Greenwood Age: 64 Gender: M : 1955 Exam Date: 01/19/2020 16:17 Ordering Phys: Lars Dietz MD Technologist: Eri Segal Exam Location: [facility] [place] Indication: Shortness of breath BP: 100 / 50 HR: 80 Rhythm: Sinus Technical Quality: MEASUREMENTS (Male / Female) Normal Values 2D ECHO LV Diastolic Diameter PLAX 4.2 cm 4.2 - 5.9 / 3.9 - 5.3 cm LV Systolic Diameter PLAX 3.6 cm LV Chamber Size 3.1 cm IVS Diastolic Thickness 0.8 cm 0.6 - 1.0 / 0.6 - 0.9 cm IVS Systolic Thickness 0.8 cm LVPW Diastolic Thickness 0.6 cm 0.6 - 1.0 / 0.6 - 0.9 cm LVPW Systolic Thickness 1.0 cm RV Chamber Size 2.4 cm LVOT Diameter 2.1 cm LV Ejection Fraction 2D Teich 32.7 % LV Ejection Fraction MOD 2C 60.3 % LV Ejection Fraction 2C AL 61.8 % LA Diameter 2.2 cm LA Width 3.2 cm LA Height 4.9 cm RA Width 2.3 cm RA Height 4.1 cm Aorta at Sinotubular Diameter 3.4 cm M-MODE LV Diastolic Diameter MM 3.9 cm 4.2 - 5.9 / 3.9 - 5.3 cm LV Systolic Diameter MM 3.2 cm LV Ejection Fraction MM Teich 35.3 % IVS Diastolic Thickness MM 1.5 cm 0.6 - 1.0 / 0.6 - 0.9 cm IVS Systolic Thickness MM 1.2 cm LVPW Diastolic Thickness MM 1.3 cm 0.6 - 1.0 / 0.6 - 0.9 cm LVPW Systolic Thickness MM 1.6 cm Aortic Annulus Diameter 3.7 cm LA Ao Ratio MM 0.6 MV E Point Septal Separation 0.9 cm DOPPLER AV Peak Velocity 71.0 cm/s LVOT Peak Velocity 57.0 cm/s AV Area Cont Eq vti 2.7 cm squared AV Area Cont Eq pk 2.9 cm squared MV Area PHT 4.3 cm squared Mitral E to A Ratio 0.8 MV E' Velocity 7.0 cm/s Mitral E to MV E' Ratio 8.7 Mitral E to LV E' Lateral Ratio 9.1 Mitral E to LV E' Septal Ratio 8.5 TR Peak Velocity 221.0 cm/s TR Peak Gradient 19.5 mmHg TV Peak E Velocity 48.0 cm/s Right Atrial Pressure 15.0 mmHg Pulmonary Artery Systolic Pressu 34.5 mmHg PV Peak Velocity 50.0 cm/s RV Acceleration Time 0.1 s RV Ejection Time 0.2 s RV AcT/ET 0.4 FINDINGS Left Ventricle Possibly normal LV size ejection fraction of 55%. Some features of grade 1 left ventricular diastolic dysfunction Right Ventricle Possibly normal size ejection fraction Right Atrium Possibly of normal size Left Atrium The left atrium is normal in size. Mitral Valve Thickened mitral valve. Aortic Valve Structurally normal aortic valve without significant sclerosis or stenosis. There is no aortic regurgitation. Tricuspid Valve Trace to mild tricuspid valve regurgitation. Pulmonic Valve Structurally normal pulmonic valve without significant stenosis. There is no pulmonic regurgitation. Pericardium Dilated inferior vena cava measuring 2.6 cm in diameter Aorta Normal ascending aorta dimension. CONCLUSIONS Possibly normal LV size ejection fraction of 55%. Some features of grade 1 left ventricular diastolic dysfunction. Thickened mitral valve. Trace to mild tricuspid valve regurgitation. Dilated inferior vena cava measuring 2.6 cm in diameter. Severe pulmonary artery peak systolic pressure of 35 mmHg. This could be an underestimation because of the poor Doppler signals. There is no pericardial effusion. There are no intracardiac masses. Technically difficult study because of poor ultrasonic window. No similar previous studies are available for comparison Dr Dot Piña MD [facility] (Electronically Signed) Final Date: 19 January 2020 20:55 S
[2020-01-19] MEDS: aspirin 325 mg Tablet PO (10:53)
[2020-01-19] MEDS: chlordiazePOXIDE 10 mg Capsule PO ×3 (11:18→22:43)
[2020-01-19 11:27] LABS: Procalcitonin 53.35 ng/mL (0-0.5)
--- NOTE | 2020-01-19 13:02 | PM.PN ---
Subjective Subjective: Interval history: This morning patient was transferred from the CSU to to the ICU, his oxygen requirements had increased to 5 L with exertion, continues to have fevers, continues to feel ill, complaints of shortness of breath and cough, states that he has not been exposed to any person with covid 19, patient admits to smoking cigarettes for more than 40 years, no formal diagnosis of COPD Vitals/I&O/Wt Last Vital Signs Temp 100.0 F H 01/19/20 12:30 Pulse 110 H 01/19/20 12:30 Resp 28 H 01/19/20 12:30 BP 92/57 01/19/20 12:30 Pulse Ox 94 01/19/20 12:30 01/18/20 01/19/20 01/19/20 22:59 06:59 14:59 Intake Total 1890.8 / 1890.8 1300 / 1300 Output Total 700 / 700 Balance 1890.8 / 1890.8 600 / 600 Weight last 48 hrs Weight 61.235 kg Physical Exam Const: COMMON NORMALS: no apparent distress and oriented x3 GENERAL APPEARANCE: ill appearing HENMT: COMMON NORMALS: normocephalic HEAD & SCALP: normocephalic Neck/C-Spine: COMMON NORMALS: no JVD Resp: COMMON NORMALS: normal respiratory effort, no retractions, no use of accessory muscles and clear to auscultation bilaterally AUSCULTATION: clear to auscultation bilaterally Cardio: COMMON NORMALS: no JVD, regular rate, regular rhythm, S1 normal heart sound and S2 normal heart sound RATE: regular rate RHYTHM: regular rhythm HEART SOUNDS: S1 normal and S2 normal GI: COMMON NORMALS: normal to inspection, nondistended, normoactive bowel sounds, soft to palpation, non-tender, no hepatosplenomegaly, no masses and no bruits PALPATION: Yes soft and Yes no hepatosplenomegaly Extremity: COMMON NORMALS: normal capillary refill, no clubbing, cyanosis or edema, no calf tenderness and no pedal edema Neuro: COMMON NORMALS: oriented x3 Psych: COMMON NORMALS: mental status grossly normal Urinary Catheter Management^: Gomez Latex Free: Cath Placed During This Visit: yes Urinary Catheter Date of Insertion: 01/19/20 Urinary Catheter Time of Insertion: 12:25 Data : 01/19/20 02:31 01/19/20 02:31 Micro: Microbiology 03/20/20 20:16 Blood Culture - Preliminary Blood SPECIMEN COLLECTED 01/18/20 20:10 Blood Culture - Preliminary Blood SPECIMEN COLLECTED A&P Assessment and plan (1) Acute respiratory failure with hypoxia: -Secondary to left lower lobe pneumonia, COPD exacerbation, sepsis criteria met -COVID 19 testing was sent through [facility] [employer] Plan: -Admit to ICU -air borne precautions -Maintain map greater than 65, LR boluses as needed -Patient is high risk of intubation, okay with elective intubation if required -Continue broad-spectrum antibiotics, vancomycin, Zosyn, azithromycin -Start Tamiflu -Solu-Medrol 40 every 8 -Monitor clinical status closely in ICU, telemetry monitoring -Respiratory panel, urine bacterial antigen, sputum culture, blood cultures Status: Acute Code(s): J96.01 - Acute respiratory failure with hypoxia (2) Pneumonia: Status: Acute Qualifiers: Laterality: left Lung location: lower lobe of lung Pneumonia type: due to unspecified organism Qualified Code(s): J18.9 - Pneumonia, unspecified organism Code(s): J18.9 - Pneumonia, unspecified organism (3) Sepsis: Status: Acute Qualifiers: Acute renal failure type: unspecified Sepsis acute organ dysfunction status: with acute organ dysfunction Sepsis type: sepsis due to unspecified organism Severe sepsis acute organ dysfunction type: acute renal failure Severe sepsis shock status: without septic shock Qualified Code(s): A41.9 - Sepsis, unspecified organism; R65.20 - Severe sepsis without septic shock; N17.9 - Acute kidney failure, unspecified Code(s): A41.9 - Sepsis, unspecified organism (4) Alcohol withdrawal: -Schedule Librium 10 mg every 6 hours -CIWAl protocol, Ativan -Thiamine, folic acid, B12 Status: Acute Code(s): F10.239 - Alcohol dependence with withdrawal, unspecified (5) KALI (acute kidney injury): Status: Acute Code(s): N17.9 - Acute kidney failure, unspecified (6) Hypokalemia: Secondary to sepsis Status: Acute Code(s): E87.6 - Hypokalemia (7) NSTEMI (non-ST elevated myocardial infarction): -Type II NSTEMI, secondary to supply demand ischemia -Monitor telemetry, monitor EKGs, monitor troponins, monitor for chest pain -Echocardiogram ordered -Aspirin, statin ordered we will continue to monitor closely - Status: Acute Code(s): I21.4 - Non-ST elevation (NSTEMI) myocardial infarction Additional A&P Information 4. nicotine dependence : offered nicotine patch but declined 5. thrombocytopenia, appears to be chronic DVt ppx: heparin for now, may need to be discontinued based on platelet count trend Full code Attestations Medical Necessity Statement*: Patient requires continued hospitalization for acute respiratory failure, alcohol withdrawal, sepsis Coding Level of Care Code Acute Machine Strap Buckler for [facility] F[facility] Diagnoses Acute respiratory failure with hypoxia J96.01 Pneumonia J18.9 Laterality: left Lung location: lower lobe of lung Pneumonia type: due to unspecified organism Sepsis A41.9; R65.20; N17.9 Acute renal failure type: unspecified Sepsis acute organ dysfunction status: with acute organ dysfunction Sepsis type: sepsis due to unspecified organism Severe sepsis acute organ dysfunction type: acute renal failure Severe sepsis shock status: without septic shock Alcohol withdrawal F10.239 KALI (acute kidney injury) N17.9 Hypokalemia E87.6 NSTEMI (non-ST elevated myocardial infarction) I21.4
[2020-01-19] MEDS: oseltamivir phosphate 75 mg Capsule PO (16:54)
[2020-01-19] MEDS: atorvastatin 40 mg Tablet PO (20:46)
[2020-01-19] MEDS: sodium chloride 0.9% 1,000 ML 100 ML IV (21:54)
[2020-01-19] MEDS: LORazepam 2 mg/mL INJ 1 mL 1 MG IVP (22:59)
[2020-01-20] VITALS (24 sets, daily range): BP systolic 95–121; BP diastolic 59–81; PULSE 94–123; RESP 16–45; TEMP 36.6–37.4; O2SAT 94–98
[2020-01-20] MEDS: heparin 5,000 unit/mL INJ 1 mL 5000 UNIT SUBCUT ×2 (03:03→16:21)
[2020-01-20] MEDS: piperacillin-tazobactam 3.375 GM in sodium chloride 0.9% (plus) 50 ML IV ×3 (03:03→20:33)
[2020-01-20] MEDS: ipratropium-albuterol 3 mL Neb INHALATION ×5 (04:23→20:22)
[2020-01-20] MEDS: chlordiazePOXIDE 10 mg Capsule PO ×4 (04:28→23:57)
[2020-01-20 05:07] LABS: Basophils % 0.2 %; Hematocrit 44.4 % (42.0-52.0); Hemoglobin 15.2 g/dL (11.7-16.6); Lymphocytes # 0.2 10^3/uL (0.8-4.8); Lymphocytes % 3.2 %; Mean Corpuscular HGB Conc 34.2 g/dL (30.0-36.0); Mean Corpuscular Hemoglobin 34.4 pg (28.0-34.0); Mean Corpuscular Volume 100.5 fL (80-94); Monocytes # 0.1 10^3/uL (0.2-0.9); Monocytes % 2.3 %; Neutrophils # 5.8 10^3/uL (1.8-7.7); Neutrophils % 94.1 %; Nucleated Red Blood Cells % 0 %; Platelet Count 107 10^3/cmm (130-400); Red Blood Count 4.42 10^6/uL (4.1-5.3); Red Cell Distribution Width 12.7 % (12.1-15.1); White Blood Count 6.2 10^3/uL (4.0-10.0)
[2020-01-20 05:34] LABS: Alanine Aminotransferase 50 U/L (0-41); Albumin Level 2.4 g/dL (3.5-5.2); Alkaline Phosphatase 31 IU/L (40-130); Anion Gap 15.6 (5-19); Aspartate Amino Transferase 206 U/L (0-40); Blood Urea Nitrogen 20 mg/dL (8-23); Calcium 8.2 mg/dL (8.5-10.5); Carbon Dioxide 22 mmol/L (22-29); Chloride 98 mmol/L (98-107); Globulin 3.8 g/dL (1.3-4.6); Glomerular Filtration Rate 75.2 mL/min (90-130); Glucose 175 mg/dL (65-115); Magnesium 2.5 mg/dL (1.7-2.3); Osmolality Calculated 275 mOsm/kg (285-295); Phosphorus 2.2 mg/dL (2.5-4.5); Potassium 3.6 mmol/L (3.5-5.1); Sodium 132 mmol/L (136-145); Total Bilirubin 0.2 mg/dL (0.15-1.2); Total Protein 6.2 g/dL (6.6-8.7)
[2020-01-20 05:48] LABS: Procalcitonin 30.84 ng/mL (0-0.5)
[2020-01-20 05:52] LABS: Slide Review Slide Review Perform
[2020-01-20 06:10] LABS: ABG PCO2 29.3 mmHg (35-45); ABG PH Result 7.37 (7.35-7.45); Arterial Blood Gas Hematocrit 44.3 % (42-52); Base Excess ABG -7.1 mmol/L (-2.0-2.0); Blood Gas Allen Test Pos; Blood Gas Sample Site Radial, left; Blood Gas Sample Type Arterial; HCO3 ABG 16.8 mmol/L (22-26); Oxygen Device NC; PO2 ABG 66.7 mmHg (80.0-100.0)
[2020-01-20] MEDS: LORazepam 2 mg/mL INJ 1 mL 1 MG IVP ×3 (06:30→20:32)
[2020-01-20 06:31] LABS: C Reactive Protein 384.2 mg/L (0.0-4.9)
--- NOTE | 2020-01-20 07:00 | XR_ITS ---
WS: [id number] XR chest 1V portable [id number] REASON FOR EXAM: sob FINDINGS: Chronic obstructive pulmonary disease findings are again noted. Nor large blebs are noted a lso. The lingula segment today shows a groundglass appearance suggesting a pneumonitis. Not seen on p revious exam. The heart is not enlarged. Arteriosclerotic changes are seen. XR/XR chest 1V portable [id number] IMPRESSION: Chronic obstructive pulmonary disease A groundglass appearance of an infiltrate in the lingula segment.
[2020-01-20] MEDS: sodium chloride 0.9% 1,000 ML 100 ML IV ×2 (08:00→20:31)
[2020-01-20] MEDS: azithromycin 250 mg Tablet 500 MG PO (08:12)
[2020-01-20] MEDS: aspirin 325 mg Tablet PO (08:12)
[2020-01-20] MEDS: multivitamin therapeutic Tablet 1 TAB PO (08:13)
[2020-01-20] MEDS: thiamine 100 mg Tablet PO (08:13)
[2020-01-20] MEDS: oseltamivir phosphate 75 mg Capsule PO ×2 (08:13→17:04)
[2020-01-20] MEDS: folic acid 1 mg Tablet PO (08:13)
--- NOTE | 2020-01-20 12:13 | PM.PN ---
Subjective Subjective: Interval history: This morning patient is lying in bed, states that he feels a bit better, but still having episodes of shortness of breath, remains afebrile overnight, still on 2 L, but when I was speaking with him, his oxygen saturations would drop to the low 70s with speaking, still has some mild tremors, diaphoresis, anxiety I spoke to the patient about elective intubation if required in the near future, patient agrees if that is required Vitals/I&O/Wt Last Vital Signs Temp 99.3 F 01/20/20 11:59 Pulse 96 01/20/20 11:59 Resp 20 H 01/20/20 11:59 BP 101/67 01/20/20 11:59 Pulse Ox 96 01/20/20 11:59 01/19/20 01/20/20 01/20/20 22:59 06:59 14:59 Intake Total 1050 / 3949.5 50 / 3999.5 1050 / 1050 Output Total 700 / 1400 Balance 1050 / 3249.5 -650 / 2599.5 1050 / 1050 Weight last 48 hrs Weight 61.235 kg Physical Exam Const: COMMON NORMALS: no apparent distress, oriented x3 and alert GENERAL APPEARANCE: ill appearing HENMT: COMMON NORMALS: normocephalic HEAD & SCALP: normocephalic Neck/C-Spine: COMMON NORMALS: no JVD Resp: COMMON NORMALS: normal respiratory effort, no retractions and no use of accessory muscles AUSCULTATION: rhonchi and wheezes Cardio: COMMON NORMALS: no JVD, regular rate, regular rhythm, S1 normal heart sound and S2 normal heart sound RATE: regular rate RHYTHM: regular rhythm HEART SOUNDS: S1 normal and S2 normal GI: COMMON NORMALS: normal to inspection, nondistended, normoactive bowel sounds, soft to palpation, non-tender, no hepatosplenomegaly, no masses and no bruits PALPATION: Yes soft and Yes no hepatosplenomegaly Extremity: COMMON NORMALS: normal capillary refill, no clubbing, cyanosis or edema, no calf tenderness and no pedal edema Neuro: COMMON NORMALS: oriented x3 SENSORIUM/ORIENTATION: Yes alert Psych: COMMON NORMALS: mental status grossly normal Urinary Catheter Management^: Gomez Latex Free: Cath Placed During This Visit: yes Reason for Continuing Indwelling Catheter: Accurate Measurement of Urinary Output in Critically Ill Patients Urinary Catheter Date of Insertion: 01/19/20 Urinary Catheter Time of Insertion: 12:25 Data : 01/20/20 04:38 01/20/20 04:38 Micro: Microbiology 01/18/20 21:09 Urine Culture - Preliminary Urine,Voided 01/18/20 20:16 Blood Culture - Preliminary Blood NEGATIVE TO DATE 01/18/20 20:10 Blood Culture - Preliminary Blood NEGATIVE TO DATE 01/19/20 12:24 Bacterial Antigens - Final Urine,Voided 01/19/20 05:34 MRSA Culture - Final Nose A&P Assessment and plan (1) Acute respiratory failure with hypoxia: -Secondary to left lower lobe pneumonia, COPD exacerbation, sepsis criteria met -Currently stable, but critical, oxygen saturations do drop into the low 70s when speaking with him, is still ill-appearing, but looking better compared to yesterday -Pro-Michael 30, CRP is 384, WBC 6.2, chest x-ray showing groundglass appearance infiltrate in the lingular segment -COVID 19 testing was sent through [facility] Plan: -Admit to ICU -air borne precautions -Maintain map greater than 65, SV delta was less than 1, not fluid responsive, currently map greater than 65, but Levophed on standby -Patient is high risk of intubation, okay with elective intubation if required -Continue broad-spectrum antibiotics, vancomycin, Zosyn, azithromycin -Start Tamiflu -Solu-Medrol 40 every 8 -Monitor clinical status closely in ICU, telemetry monitoring -Respiratory panel, urine bacterial antigen, sputum culture, blood cultures Status: Acute Code(s): J96.01 - Acute respiratory failure with hypoxia (2) Pneumonia: Status: Acute Qualifiers: Laterality: left Lung location: lower lobe of lung Pneumonia type: due to unspecified organism Qualified Code(s): J18.9 - Pneumonia, unspecified organism Code(s): J18.9 - Pneumonia, unspecified organism (3) Sepsis: Status: Acute Qualifiers: Acute renal failure type: unspecified Sepsis acute organ dysfunction status: with acute organ dysfunction Sepsis type: sepsis due to unspecified organism Severe sepsis acute organ dysfunction type: acute renal failure Severe sepsis shock status: without septic shock Qualified Code(s): A41.9 - Sepsis, unspecified organism; R65.20 - Severe sepsis without septic shock; N17.9 - Acute kidney failure, unspecified Code(s): A41.9 - Sepsis, unspecified organism (4) Alcohol withdrawal: -Schedule Librium 10 mg every 6 hours -CIWAl protocol, Ativan -Thiamine, folic acid, B12 Status: Acute Code(s): F10.239 - Alcohol dependence with withdrawal, unspecified (5) KALI (acute kidney injury): Status: Acute Code(s): N17.9 - Acute kidney failure, unspecified (6) Hypokalemia: Secondary to sepsis Status: Acute Code(s): E87.6 - Hypokalemia (7) NSTEMI (non-ST elevated myocardial infarction): -Type II NSTEMI, secondary to supply demand ischemia -Monitor telemetry, monitor EKGs, monitor troponins, monitor for chest pain -Echocardiogram ejection fraction 55%, grade 1 diastolic dysfunction, severe pulmonary artery peak pressure at 35 -Aspirin, statin ordered we will continue to monitor closely Status: Acute Code(s): I21.4 - Non-ST elevation (NSTEMI) myocardial infarction Additional A&P Information 4. nicotine dependence : offered nicotine patch but declined 5. thrombocytopenia, appears to be chronic DVt ppx: heparin for now, may need to be discontinued based on platelet count trend Full code Attestations Medical Necessity Statement*: Patient requires continued hospitalization due to acute respiratory distress secondary to pneumonia Coding Level of Care Code Acute Marketing Traffic Coordinator for [facility] Diagnoses Acute respiratory failure with hypoxia J96.01 Pneumonia J18.9 Laterality: left Lung location: lower lobe of lung Pneumonia type: due to unspecified organism Sepsis A41.9; R65.20; N17.9 Acute renal failure type: unspecified Sepsis acute organ dysfunction status: with acute organ dysfunction Sepsis type: sepsis due to unspecified organism Severe sepsis acute organ dysfunction type: acute renal failure Severe sepsis shock status: without septic shock Alcohol withdrawal F10.239 KALI (acute kidney injury) N17.9 Hypokalemia E87.6 NSTEMI (non-ST elevated myocardial infarction) I21.4
[2020-01-20] MEDS: vancomycin 1,000 MG in sodium chloride 0.9% 250 ML 250 MG IV (17:04)
[2020-01-20] MEDS: atorvastatin 40 mg Tablet PO (20:32)
[2020-01-21] VITALS (20 sets, daily range): BP systolic 105–129; BP diastolic 63–81; PULSE 90–130; RESP 16–52; TEMP 36.6–38.3; O2SAT 92–96
[2020-01-21] MEDS: ipratropium-albuterol 3 mL Neb INHALATION ×5 (00:19→19:38)
[2020-01-21 03:29] LABS: ABG PCO2 31.6 mmHg (35-45); ABG PH Result 7.39 (7.35-7.45); Arterial Blood Gas Hematocrit 43.3 % (42-52); Base Excess ABG -4.8 mmol/L (-2.0-2.0); Blood Gas Allen Test Pos; Blood Gas Sample Site Radial, left; Blood Gas Sample Type Arterial; HCO3 ABG 19.1 mmol/L (22-26); Oxygen Device NC; PO2 ABG 71.8 mmHg (80.0-100.0)
[2020-01-21] MEDS: piperacillin-tazobactam 3.375 GM in sodium chloride 0.9% (plus) 50 ML IV ×3 (04:11→20:13)
[2020-01-21] MEDS: chlordiazePOXIDE 10 mg Capsule PO ×3 (04:11→20:13)
[2020-01-21] MEDS: heparin 5,000 unit/mL INJ 1 mL 5000 UNIT SUBCUT ×2 (04:11→16:41)
[2020-01-21 06:17] LABS: Alanine Aminotransferase 41 U/L (0-41); Alkaline Phosphatase 32 IU/L (40-130); Anion Gap 12.8 (5-19); Blood Urea Nitrogen 16 mg/dL (8-23); C Reactive Protein 205.3 mg/L (0.0-4.9); Carbon Dioxide 20 mmol/L (22-29); Chloride 107 mmol/L (98-107); Globulin 3.6 g/dL (1.3-4.6); Glomerular Filtration Rate 75.2 mL/min (90-130); Glucose 196 mg/dL (65-115); Magnesium 2.5 mg/dL (1.7-2.3); Osmolality Calculated 284 mOsm/kg (285-295); Phosphorus 2.1 mg/dL (2.5-4.5); Potassium 3.8 mmol/L (3.5-5.1); Sodium 136 mmol/L (136-145); Total Bilirubin 0.2 mg/dL (0.15-1.2); Total Protein 5.6 g/dL (6.6-8.7)
[2020-01-21 06:20] LABS: Procalcitonin 15.82 ng/mL (0-0.5)
[2020-01-21 06:25] LABS: Aspartate Amino Transferase 118 U/L (0-40)
--- NOTE | 2020-01-21 07:00 | XR_ITS ---
WS: [id number] CHEST XRAY TECHNIQUE: Portable chest. CLINICAL INFORMATION: sob COMPARISON: January 20, 2020 FINDINGS: Heart: Cardiomegaly. Lungs: Chronic emphysematous changes. Small left pleural effusion. No focal pneumonia. Bones: Normal visualized bony structures. XR/XR chest 1V portable [id number] IMPRESSION: 1. Slight haziness around the left lower lobe likely represents a small left p leural effusion. 2. Chronic emphysematous changes. No focal pneumonia.
[2020-01-21] MEDS: vancomycin 1,000 MG in sodium chloride 0.9% 250 ML 250 MG IV (07:49)
[2020-01-21] MEDS: aspirin 325 mg Tablet PO (07:52)
[2020-01-21] MEDS: folic acid 1 mg Tablet PO (07:52)
[2020-01-21] MEDS: thiamine 100 mg Tablet PO (07:53)
[2020-01-21] MEDS: oseltamivir phosphate 75 mg Capsule PO ×2 (07:53→17:50)
[2020-01-21] MEDS: multivitamin therapeutic Tablet 1 TAB PO (07:53)
[2020-01-21] MEDS: azithromycin 250 mg Tablet 500 MG PO (07:53)
[2020-01-21] MEDS: sodium chloride 0.9% 1,000 ML 100 ML IV (08:07)
[2020-01-21 09:02] LABS: Coronavirus Overall Results NOT DETECTED; Coronavirus Qual PCR Source NOT GIVEN; Patient Symptomatic? NOT GIVEN; SARS-CoV-2 RNA: NEGATIVE
[2020-01-21 09:03] LABS: Pan-SARS RNA: NEGATIVE
--- NOTE | 2020-01-21 09:33 | P.PN_ITS ---
Subjective Subjective: Interval history: Sherman says a few words to me, but still appears slightly confused. History and physical reviewed. Medications: Reviewed: Yes Vitals/I&O/Wt Last Vital Signs Temp 98.8 F 01/20/20 22:00 Pulse 108 H 01/21/20 08:40 Resp 22 H 01/21/20 08:30 BP 118/72 01/21/20 08:00 Pulse Ox 94 01/21/20 08:30 01/20/20 01/21/20 01/21/20 22:59 06:59 14:59 Intake Total 1780 / 2830 1290 / 4120 Output Total 550 / 550 575 / 1125 Balance 1230 / 2280 715 / 2995 Physical Exam Narrative: EXAM NARRATIVE: General exam no apparent distress Cardiovascular slight tachycardia, no murmur Lungs clear. Diminished breath sounds are noted bilaterally Abdomen is soft, positive bowel sounds Extremities no cyanosis clubbing or edema Urinary Catheter Management^: Gomez Latex Free: Cath Placed During This Visit: yes Reason for Continuing Indwelling Catheter: Accurate Measurement of Urinary Output in Critically Ill Patients Urinary Catheter Date of Insertion: 01/19/20 Urinary Catheter Time of Insertion: 12:25 Data : 01/20/20 04:38 01/21/20 05:23 Micro: Microbiology 01/18/20 21:09 Urine Culture - Final Urine,Voided A&P Assessment and plan (1) Acute respiratory failure with hypoxia: Left lower lobe pneumonia. Currently on vancomycin, azithromycin, Zosyn. Overall appears to be improving Currently down to 2 L of oxygen Sepsis appears to be resolving Covid is negative Borderline hypotension has resolved A transfer out of ICU but secondary to some underlying confusion still needs one-on-one Status: Acute Code(s): J96.01 - Acute respiratory failure with hypoxia (2) Pneumonia: See above Status: Acute Qualifiers: Laterality: left Lung location: lower lobe of lung Pneumonia type: due to unspecified organism Qualified Code(s): J18.9 - Pneumonia, unspecified organism Code(s): J18.9 - Pneumonia, unspecified organism (3) Sepsis: Resolved Status: Acute Qualifiers: Acute renal failure type: unspecified Sepsis acute organ dysfunction status: with acute organ dysfunction Sepsis type: sepsis due to unspecified organism Severe sepsis acute organ dysfunction type: acute renal failure Severe sepsis shock status: without septic shock Qualified Code(s): A41.9 - Sepsis, unspecified organism; R65.20 - Severe sepsis without septic shock; N17.9 - Acute kidney failure, unspecified Code(s): A41.9 - Sepsis, unspecified organism (4) Alcohol withdrawal: Still present although improving. Reduce Librium slightly. Continue Ativan as needed. Still seems slightly confused. This encephalopathy may be secondary to alcohol withdrawal, or acute illness. Continue thiamine Status: Acute Code(s): F10.239 - Alcohol dependence with withdrawal, unspecified (5) KALI (acute kidney injury): Resolved Status: Acute Code(s): N17.9 - Acute kidney failure, unspecified (6) Hypokalemia: Seco resolved ndary to sepsis Status: Acute Code(s): E87.6 - Hypokalemia (7) NSTEMI (non-ST elevated myocardial infarction): Type II. Echocardiogram demonstrates preserved EF Status: Acute Code(s): I21.4 - Non-ST elevation (NSTEMI) myocardial infarction Additional A&P Information Acute COPD exacerbation. Receiving IV steroids, pulmonary toilet tobacco dependency, counseled Hyponatremia, resolved Transaminitis, improving Thrombocytopenia, stable Elevated sugar. Hemoglobin A1c was 5.7 Heparin for DVT prophylaxis Attestations Medical Necessity Statement*: Needs continued hospitalization, for IV antibiotics secondary to pneumonia, as well as alcohol withdrawal. Coding Level of Care Code Acute Senior Unix Administrator for [facility] [place] Fwd Diagnoses Acute respiratory failure with hypoxia J96.01 Pneumonia J18.9 Laterality: left Lung location: lower lobe of lung Pneumonia type: due to unspecified organism Sepsis A41.9; R65.20; N17.9 Acute renal failure type: unspecified Sepsis acute organ dysfunction status: with acute organ dysfunction Sepsis type: sepsis due to unspecified organism Severe sepsis acute organ dysfunction type: acute renal failure Severe sepsis shock status: without septic shock Alcohol withdrawal F10.239 KALI (acute kidney injury) N17.9 Hypokalemia E87.6 NSTEMI (non-ST elevated myocardial infarction) I21.4
--- NOTE | 2020-01-21 14:41 | PC.NURSE ---
TRANSFER TO FLOOR Report called to FRANCISCO Yee. Patient transferred to [facility]. Receiving nurse in room upon arrival. All belongings sent with patient. Sister, Sylwia, called and notified.
[2020-01-21 17:37] LABS: Vancomycin Trough 23.5 ug/mL (10-15)
[2020-01-21] MEDS: atorvastatin 40 mg Tablet PO (21:37)
[2020-01-22] VITALS (14 sets, daily range): BP systolic 105–135; BP diastolic 65–85; PULSE 67–115; RESP 16–22; TEMP 36.3–37.3; O2SAT 89–96
[2020-01-22] MEDS: sodium chloride 0.9% 1,000 ML 75 ML IV (00:36)
[2020-01-22] MEDS: acetaminophen 325 mg Tablet 650 MG PO (00:36)
[2020-01-22] MEDS: ipratropium-albuterol 3 mL Neb INHALATION ×5 (01:01→19:47)
[2020-01-22] MEDS: heparin 5,000 unit/mL INJ 1 mL 5000 UNIT SUBCUT ×2 (03:59→16:28)
[2020-01-22] MEDS: piperacillin-tazobactam 3.375 GM in sodium chloride 0.9% (plus) 50 ML IV ×3 (03:59→20:24)
[2020-01-22] MEDS: vancomycin 1,000 MG in sodium chloride 0.9% 250 ML 250 MG IV (04:00)
[2020-01-22] MEDS: chlordiazePOXIDE 10 mg Capsule PO ×3 (04:11→20:25)
[2020-01-22 04:51] LABS: Basophils % 0.1 %; Hematocrit 38.6 % (42.0-52.0); Hemoglobin 13.1 g/dL (11.7-16.6); Lymphocytes # 0.2 10^3/uL (0.8-4.8); Lymphocytes % 1.8 %; Mean Corpuscular HGB Conc 33.9 g/dL (30.0-36.0); Mean Corpuscular Hemoglobin 34.3 pg (28.0-34.0); Mean Platelet Volume 11.4 fL (7.4-10.4); Monocytes # 0.3 10^3/uL (0.2-0.9); Monocytes % 3.2 %; Neutrophils # 9.1 10^3/uL (1.8-7.7); Neutrophils % 94.5 %; Nucleated Red Blood Cells % 0 %; Platelet Count 149 10^3/cmm (130-400); Red Blood Count 3.82 10^6/uL (4.1-5.3); Red Cell Distribution Width 13.3 % (12.1-15.1); White Blood Count 9.7 10^3/uL (4.0-10.0)
[2020-01-22 05:06] LABS: Alanine Aminotransferase 48 U/L (0-41); Albumin Level 2.1 g/dL (3.5-5.2); Alkaline Phosphatase 36 IU/L (40-130); Aspartate Amino Transferase 112 U/L (0-40); Blood Urea Nitrogen 21 mg/dL (8-23); Calcium 8.4 mg/dL (8.5-10.5); Carbon Dioxide 18 mmol/L (22-29); Chloride 110 mmol/L (98-107); Globulin 3.6 g/dL (1.3-4.6); Glomerular Filtration Rate 67.4 mL/min (90-130); Glucose 200 mg/dL (65-115); Osmolality Calculated 292 mOsm/kg (285-295); Sodium 140 mmol/L (136-145); Total Bilirubin 0.2 mg/dL (0.15-1.2); Total Protein 5.7 g/dL (6.6-8.7)
[2020-01-22] MEDS: oseltamivir phosphate 75 mg Capsule PO ×2 (08:41→17:26)
[2020-01-22] MEDS: folic acid 1 mg Tablet PO (08:41)
[2020-01-22] MEDS: aspirin 325 mg Tablet PO (08:41)
[2020-01-22] MEDS: multivitamin therapeutic Tablet 1 TAB PO (08:41)
[2020-01-22] MEDS: thiamine 100 mg Tablet PO (08:41)
--- NOTE | 2020-01-22 10:40 | PM.PN ---
Subjective Subjective: Interval history: Sherman reports he is doing okay. Nursing reports he has not even wanted to eat. He denies any complaints of pain. They have not noted any withdrawal. Medications: Reviewed: Yes Vitals/I&O/Wt Last Vital Signs Temp 97.4 F L 01/22/20 07:48 Pulse 98 01/22/20 07:48 Resp 20 H 01/22/20 07:48 BP 105/65 01/22/20 07:48 Pulse Ox 93 01/22/20 07:48 01/21/20 01/22/20 01/22/20 22:59 06:59 14:59 Intake Total 1150 / 1570 50 / 1620 240 / 240 Output Total 300 / 300 750 / 1050 Balance 850 / 1270 -700 / 570 240 / 240 Physical Exam Narrative: EXAM NARRATIVE: General exam no apparent distress Cardiovascular slight tachycardia, no murmur Lungs coarse breath sounds at the bases bilaterally Abdomen is soft, positive bowel sounds Extremities no cyanosis clubbing or edema Urinary Catheter Management^: Gomez Latex Free: Cath Placed During This Visit: yes Reason for Continuing Indwelling Catheter: Chronic Indwelling Urinary Catheter on Admission Urinary Catheter Date of Insertion: 01/19/20 Urinary Catheter Time of Insertion: 12:25 Data : 01/22/20 04:18 01/22/20 04:18 Micro: Microbiology 01/18/20 21:09 Urine Culture - Final Urine,Voided A&P Assessment and plan (1) Acute respiratory failure with hypoxia: Left lower lobe pneumonia. Currently on vancomycin, azithromycin, Zosyn. Significantly improved Discontinue vancomycin, MRSA swab negative Covid is negative Continue Tamiflu currently but consider discontinuing tomorrow after 5 days Status: Acute Code(s): J96.01 - Acute respiratory failure with hypoxia (2) Pneumonia: See above Status: Acute Qualifiers: Laterality: left Lung location: lower lobe of lung Pneumonia type: due to unspecified organism Qualified Code(s): J18.9 - Pneumonia, unspecified organism Code(s): J18.9 - Pneumonia, unspecified organism (3) Sepsis: Resolved Status: Acute Qualifiers: Acute renal failure type: unspecified Sepsis acute organ dysfunction status: with acute organ dysfunction Sepsis type: sepsis due to unspecified organism Severe sepsis acute organ dysfunction type: acute renal failure Severe sepsis shock status: without septic shock Qualified Code(s): A41.9 - Sepsis, unspecified organism; R65.20 - Severe sepsis without septic shock; N17.9 - Acute kidney failure, unspecified Code(s): A41.9 - Sepsis, unspecified organism (4) Alcohol withdrawal: Improved. No evidence of current withdrawal. Discontinue Ativan Reduce Librium continue thiamine Status: Acute Code(s): F10.239 - Alcohol dependence with withdrawal, unspecified (5) KALI (acute kidney injury): Resolved Discontinue IV fluids Discontinue Gomez Status: Acute Code(s): N17.9 - Acute kidney failure, unspecified (6) Hypokalemia: Resolved Status: Acute Code(s): E87.6 - Hypokalemia (7) NSTEMI (non-ST elevated myocardial infarction): Type II. Echocardiogram demonstrates preserved EF Status: Acute Code(s): I21.4 - Non-ST elevation (NSTEMI) myocardial infarction Additional A&P Information Acute COPD exacerbation. Discontinue IV steroids. Change to oral prednisone tobacco dependency, counseled Hyponatremia, resolved Transaminitis, improving Thrombocytopenia, stable Elevated sugar. Hemoglobin A1c was 5.7. Should improve with discontinuation of steroids Up in chair, up with physical therapy today Heparin for DVT prophylaxis Attestations Medical Necessity Statement*: Needs continued hospitalization for further treatment of pneumonia with IV antibiotics. Coding Level of Care Code Acute Sales Inspector for [facility] Fwd Diagnoses Acute respiratory failure with hypoxia J96.01 Pneumonia J18.9 Laterality: left Lung location: lower lobe of lung Pneumonia type: due to unspecified organism Sepsis A41.9; R65.20; N17.9 Acute renal failure type: unspecified Sepsis acute organ dysfunction status: with acute organ dysfunction Sepsis type: sepsis due to unspecified organism Severe sepsis acute organ dysfunction type: acute renal failure Severe sepsis shock status: without septic shock Alcohol withdrawal F10.239 KALI (acute kidney injury) N17.9 Hypokalemia E87.6 NSTEMI (non-ST elevated myocardial infarction) I21.4
[2020-01-22 14:57] LABS: ABG PCO2 29.1 mmHg (35-45); ABG PH Result 7.37 (7.35-7.45); Arterial Blood Gas Hematocrit 47.3 % (42-52); Base Excess ABG -7.1 mmol/L (-2.0-2.0); Blood Gas Allen Test Pos; Blood Gas Sample Site Radial, left; Blood Gas Sample Type Arterial; HCO3 ABG 16.7 mmol/L (22-26); PO2 ABG 72.9 mmHg (80.0-100.0)
[2020-01-22 16:15] LABS: Legionella Antibody <1:256
[2020-01-22] MEDS: tamsulosin 0.4 mg Capsule PO (17:50)
--- NOTE | 2020-01-22 19:15 | PC.NURSE ---
Introduction of staff and report received, aidet.
[2020-01-22] MEDS: atorvastatin 40 mg Tablet PO (20:25)
--- NOTE | 2020-01-22 20:25 | PC.NURSE ---
Hs meds given at this time.
--- NOTE | 2020-01-22 20:36 | PC.NURSE ---
hs meds given at this time.
[2020-01-23] VITALS (17 sets, daily range): BP systolic 113–153; BP diastolic 64–98; PULSE 92–125; RESP 16–20; TEMP 36.2–36.8; O2SAT 91–97; BMI 19.9
[2020-01-23] MEDS: ipratropium-albuterol 3 mL Neb INHALATION ×5 (00:15→20:48)
[2020-01-23] MEDS: piperacillin-tazobactam 3.375 GM in sodium chloride 0.9% (plus) 50 ML IV ×3 (04:14→20:26)
[2020-01-23] MEDS: heparin 5,000 unit/mL INJ 1 mL 5000 UNIT SUBCUT ×2 (04:14→17:10)
[2020-01-23 05:11] LABS: Basophils % 0.1 %; Hematocrit 38.6 % (42.0-52.0); Hemoglobin 13.1 g/dL (11.7-16.6); Lymphocytes # 0.3 10^3/uL (0.8-4.8); Lymphocytes % 3.1 %; Mean Corpuscular HGB Conc 33.9 g/dL (30.0-36.0); Mean Corpuscular Hemoglobin 34.1 pg (28.0-34.0); Mean Corpuscular Volume 100.5 fL (80-94); Mean Platelet Volume 10.8 fL (7.4-10.4); Monocytes # 0.4 10^3/uL (0.2-0.9); Monocytes % 4.5 %; Neutrophils % 91.5 %; Nucleated Red Blood Cells % 0 %; Platelet Count 197 10^3/cmm (130-400); Red Blood Count 3.84 10^6/uL (4.1-5.3); Red Cell Distribution Width 13.6 % (12.1-15.1); White Blood Count 8.7 10^3/uL (4.0-10.0)
[2020-01-23 05:25] LABS: Anion Gap 14.7 (5-19); Blood Urea Nitrogen 25 mg/dL (8-23); Calcium 8.5 mg/dL (8.5-10.5); Carbon Dioxide 20 mmol/L (22-29); Chloride 108 mmol/L (98-107); Glucose 199 mg/dL (65-115); Osmolality Calculated 290 mOsm/kg (285-295); Potassium 3.7 mmol/L (3.5-5.1); Sodium 139 mmol/L (136-145)
--- NOTE | 2020-01-23 09:13 | XR_ITS ---
WS: [id number] Portable AP upright chest, 01/23/2020 Clinical Data: follow up pneumonia Comparison: Portable chest, 01/21/2020. Findings: There is patchy opacity in the left lower lobe which may be pleural effusion, atelectasis a nd pneumonia. The right lung is clear. The heart is normal. The aortic arch and descending aorta show calcification and tortuosity. XR/XR chest 1V portable [id number] Impression: 1. Patchy opacity in left lower lobe which may represent effusion, atelectasis and pneumonia. 2. Atherosclerosis.
[2020-01-23] MEDS: aspirin 325 mg Tablet PO (10:05)
[2020-01-23] MEDS: oseltamivir phosphate 75 mg Capsule PO (10:05)
[2020-01-23] MEDS: predniSONE 20 mg Tablet 40 MG PO (10:05)
[2020-01-23] MEDS: tamsulosin 0.4 mg Capsule PO (10:05)
[2020-01-23] MEDS: multivitamin therapeutic Tablet 1 TAB PO (10:05)
[2020-01-23] MEDS: folic acid 1 mg Tablet PO (10:05)
[2020-01-23] MEDS: thiamine 100 mg Tablet PO (10:06)
[2020-01-23 10:57] LABS: Ammonia 24 umol/L (16-60)
--- NOTE | 2020-01-23 11:25 | P.PN_ITS ---
Subjective Subjective: Interval history: Sherman reports he is doing okay but acknowledges he is very weak. Medications: Reviewed: Yes Vitals/I&O/Wt Last Vital Signs Temp 97.5 F L 01/23/20 08:00 Pulse 98 01/23/20 11:18 Resp 18 01/23/20 11:13 BP 125/76 01/23/20 08:00 Pulse Ox 97 01/23/20 11:13 01/22/20 01/23/20 01/23/20 22:59 06:59 14:59 Intake Total 50 / 820 530 / 1350 120 / 120 Output Total 350 / 350 500 / 850 Balance -300 / 470 30 / 500 120 / 120 Physical Exam Narrative: EXAM NARRATIVE: General exam no apparent distress. FiO2 was increased last night Cardiovascular slight tachycardia, no murmur Lungs coarse breath sounds at the bases bilaterally Abdomen is soft, positive bowel sounds Extremities no cyanosis clubbing or edema Urinary Catheter Management^: Gomez Latex Free: Cath Placed During This Visit: yes Reason for Continuing Indwelling Catheter: Chronic Indwelling Urinary Catheter on Admission Urinary Catheter Date of Insertion: 01/19/20 Urinary Catheter Time of Insertion: 12:25 Data : 01/23/20 04:51 01/23/20 04:51 Other data: Chest x-ray repeated. Left lower lobe infiltrate persists A&P Assessment and plan (1) Acute respiratory failure with hypoxia: Left lower lobe pneumonia. Continue Zosyn Significantly improved Vancomycin was discontinued as MRSA swab negative Covid is negative Discontinue Tamiflu today. He has had 5 days Status: Acute Code(s): J96.01 - Acute respiratory failure with hypoxia (2) Pneumonia: See above Status: Acute Qualifiers: Laterality: left Lung location: lower lobe of lung Pneumonia type: due to unspecified organism Qualified Code(s): J18.9 - Pneumonia, unspecified organism Code(s): J18.9 - Pneumonia, unspecified organism (3) Sepsis: Resolved Status: Acute Qualifiers: Acute renal failure type: unspecified Sepsis acute organ dysfunction status: with acute organ dysfunction Sepsis type: sepsis due to unspecified organism Severe sepsis acute organ dysfunction type: acute renal failure Severe sepsis shock status: without septic shock Qualified Code(s): A41.9 - Sepsis, unspecified organism; R65.20 - Severe sepsis without septic shock; N17.9 - Acute kidney failure, unspecified Code(s): A41.9 - Sepsis, unspecified organism (4) Alcohol withdrawal: Improved. No evidence of current withdrawal. Discontinue Ativan Discontinue Librium today continue thiamine He appears to still have some underlying confusion. Will check ammonia level. This was checked and normal Status: Acute Code(s): F10.239 - Alcohol dependence with withdrawal, unspecified (5) KALI (acute kidney injury): Resolved Status: Acute Code(s): N17.9 - Acute kidney failure, unspecified (6) Hypokalemia: Resolved Status: Acute Code(s): E87.6 - Hypokalemia (7) NSTEMI (non-ST elevated myocardial infarction): Type II. Echocardiogram demonstrates preserved EF Status: Acute Code(s): I21.4 - Non-ST elevation (NSTEMI) myocardial infarction Additional A&P Information Acute COPD exacerbation. Continue prednisone tobacco dependency, counseled Hyponatremia, resolved Transaminitis, improving Thrombocytopenia, stable Elevated sugar. Hemoglobin A1c was 5.7. Should improve with discontinuation of steroids Continue to work with therapy. He is not appropriate for discharge home at this time. He may require skilled care. Heparin for DVT prophylaxis Wean oxygen as tolerated Attestations Medical Necessity Statement*: Needs continued hospitalization for IV antibiotics related to pneumonia Coding Level of Care Code Acute Otr Owner Operator for [facility] Diagnoses Acute respiratory failure with hypoxia J96.01 Pneumonia J18.9 Laterality: left Lung location: lower lobe of lung Pneumonia type: due to unspecified organism Sepsis A41.9; R65.20; N17.9 Acute renal failure type: unspecified Sepsis acute organ dysfunction status: with acute organ dysfunction Sepsis type: sepsis due to unspecified organism Severe sepsis acute organ dysfunction type: acute renal failure Severe sepsis shock status: without septic shock Alcohol withdrawal F10.239 KALI (acute kidney injury) N17.9 Hypokalemia E87.6 NSTEMI (non-ST elevated myocardial infarction) I21.4
--- NOTE | 2020-01-23 16:18 | ECG_ITS ---
Measurements Intervals [place] Rate: 114 P: MT: 0 QRS: 41 QRSD: 85 T: 28 QT: 323 QTc: 445 ATRIAL FIBRILLATION WITH RAPID VENTRICULAR RESPONSE ABNORMAL RHYTHM ECG Compared to ECG 01/19/2020 01:41:18 Sinus rhythm no longer present Electronically Signed On 01-23-2020 18:22:23 CDT by Dot Piña M.D. [email or web address]
--- NOTE | 2020-01-23 17:15 | CTR_ITS ---
PROCEDURE INFORMATION: Exam: CT Head Without Contrast Exam date and time: 01/23/2020 6:47 PM Age: 64 years old Clinical indication: Other: Confusion fever TECHNIQUE: Imaging protocol: Computed tomography of the head without contrast. Total DLP: 834.13 mGy-cm Radiation optimization: All CT scans at this facility use at least one of these dose optimization techniques: automated exposure control; mA and/or kV adjustment per patient size (includes targeted exams where dose is matched to clinical indication); or iterative reconstruction. COMPARISON: No relevant prior studies available. FINDINGS: Brain: Mild volume loss and white matter disease are identified. There is no acute infarct or edema. No hemorrhage. Ventricles: Normal. No ventriculomegaly. Bones/joints: Unremarkable. No acute fracture. Sinuses: Visualized sinuses are unremarkable. No fluid levels. Mastoid air cells: Visualized mastoid air cells are well aerated. Soft tissues: Unremarkable. CT/CT head wo con* [id number] IMPRESSION: There are no acute concerning abnormalities. Radiation Dose CTDIVOL = (mGy): DLP = 834.13 (mGy-cm)
[2020-01-23] MEDS: metoprolol tartrate 25 mg Tablet 12.5 MG PO (17:44)
[2020-01-23] MEDS: atorvastatin 40 mg Tablet PO (20:26)
[2020-01-24] VITALS (14 sets, daily range): BP systolic 109–143; BP diastolic 75–84; PULSE 70–120; RESP 15–20; TEMP 36.4–36.6; O2SAT 92–94
[2020-01-24] MEDS: ipratropium-albuterol 3 mL Neb INHALATION ×5 (00:50→21:24)
[2020-01-24] MEDS: heparin 5,000 unit/mL INJ 1 mL 5000 UNIT SUBCUT (04:05)
[2020-01-24] MEDS: piperacillin-tazobactam 3.375 GM in sodium chloride 0.9% (plus) 50 ML IV ×3 (04:05→21:30)
[2020-01-24] MEDS: metoprolol tartrate 25 mg Tablet 12.5 MG PO (08:47)
[2020-01-24] MEDS: tamsulosin 0.4 mg Capsule PO (08:47)
[2020-01-24] MEDS: predniSONE 20 mg Tablet 40 MG PO (08:47)
[2020-01-24] MEDS: multivitamin therapeutic Tablet 1 TAB PO (08:47)
[2020-01-24] MEDS: thiamine 100 mg Tablet PO (08:48)
[2020-01-24] MEDS: folic acid 1 mg Tablet PO (08:48)
[2020-01-24] MEDS: aspirin 325 mg Tablet PO (08:48)
[2020-01-24 09:52] LABS: Thyroid Stimulating Hormone 0.69 uIU/mL (0.27-4.20); Vitamin B12 1125 pg/mL (232-1245)
[2020-01-24] MEDS: FUROsemide 10 mg/mL SDV 2mL 20 MG IVP (10:54)
--- NOTE | 2020-01-24 10:54 | PM.PN ---
Subjective Subjective: Interval history: Sherman reports he is feeling better but very weak. Medications: Reviewed: Yes Vitals/I&O/Wt Last Vital Signs Temp 97.6 F 01/24/20 07:18 Pulse 70 01/24/20 08:48 Resp 16 01/24/20 08:48 BP 122/75 01/24/20 07:18 Pulse Ox 94 01/24/20 08:48 01/23/20 01/24/20 01/24/20 22:59 06:59 14:59 Intake Total 50 / 340 50 / 390 Output Total 300 / 300 600 / 900 Balance -250 / 40 -550 / -510 Weight last 48 hrs Weight 72.439 kg Weight 61.235 kg Physical Exam Narrative: EXAM NARRATIVE: General exam no apparent distress. Cardiovascular slight tachycardia, no murmur Lungs overall clear today Abdomen is soft, positive bowel sounds Extremities no cyanosis clubbing. 1+ edema noted lower extremities Urinary Catheter Management^: Gomez Latex Free: Cath Placed During This Visit: yes Reason for Continuing Indwelling Catheter: Chronic Indwelling Urinary Catheter on Admission Urinary Catheter Date of Insertion: 01/19/20 Urinary Catheter Time of Insertion: 12:25 Data : 01/23/20 04:51 01/23/20 04:51 Micro: Microbiology 01/18/20 20:16 Blood Culture - Final Blood NO GROWTH AFTER 5 DAYS 01/18/20 20:10 Blood Culture - Final Blood NO GROWTH AFTER 5 DAYS A&P Assessment and plan (1) Acute respiratory failure with hypoxia: Left lower lobe pneumonia. Continue Zosyn. Wean oxygen as tolerated. Will likely need oxygen at discharge. Significantly improved Vancomycin was discontinued as MRSA swab negative Covid is negative Discontinue Tamiflu today. He has had 5 days Status: Acute Code(s): J96.01 - Acute respiratory failure with hypoxia (2) Pneumonia: See above Status: Acute Qualifiers: Laterality: left Lung location: lower lobe of lung Pneumonia type: due to unspecified organism Qualified Code(s): J18.9 - Pneumonia, unspecified organism Code(s): J18.9 - Pneumonia, unspecified organism (3) Sepsis: Resolved Status: Acute Qualifiers: Acute renal failure type: unspecified Sepsis acute organ dysfunction status: with acute organ dysfunction Sepsis type: sepsis due to unspecified organism Severe sepsis acute organ dysfunction type: acute renal failure Severe sepsis shock status: without septic shock Qualified Code(s): A41.9 - Sepsis, unspecified organism; R65.20 - Severe sepsis without septic shock; N17.9 - Acute kidney failure, unspecified Code(s): A41.9 - Sepsis, unspecified organism (4) Alcohol withdrawal: Improved. No evidence of current withdrawal. Ativan and Librium have been discontinued Continue thiamine Underlying confusion appears to have lessened. TSH, B12, ammonia level, CT head normal Status: Acute Code(s): F10.239 - Alcohol dependence with withdrawal, unspecified (5) KALI (acute kidney injury): Resolved Status: Acute Code(s): N17.9 - Acute kidney failure, unspecified (6) Hypokalemia: Resolved Status: Acute Code(s): E87.6 - Hypokalemia (7) NSTEMI (non-ST elevated myocardial infarction): Type II. Echocardiogram demonstrates preserved EF Status: Acute Code(s): I21.4 - Non-ST elevation (NSTEMI) myocardial infarction Additional A&P Information Acute COPD exacerbation. Has received 5 days of prednisone. Discontinue today tobacco dependency, counseled Peripheral edema. Lasix IV x1 today Hyponatremia, resolved Atrial fibrillation, with rapid ventricular rate, mild, noted on EKG yesterday. Metoprolol added. Had echocardiogram previously which demonstrated preserved EF Transaminitis, improving Thrombocytopenia, stable Elevated sugar. Hemoglobin A1c was 5.7. Should improve with discontinuation of steroids Continue to work with therapy. Possible discharge tomorrow, laboratory tomorrow Heparin for DVT prophylaxis Wean oxygen as tolerated Attestations Medical Necessity Statement*: Needs continued hospital stay for IV antibiotics related to pneumonia Coding Level of Care Code Acute Carburetor Expert for [facility] Fwd Diagnoses Acute respiratory failure with hypoxia J96.01 Pneumonia J18.9 Laterality: left Lung location: lower lobe of lung Pneumonia type: due to unspecified organism Sepsis A41.9; R65.20; N17.9 Acute renal failure type: unspecified Sepsis acute organ dysfunction status: with acute organ dysfunction Sepsis type: sepsis due to unspecified organism Severe sepsis acute organ dysfunction type: acute renal failure Severe sepsis shock status: without septic shock Alcohol withdrawal F10.239 KALI (acute kidney injury) N17.9 Hypokalemia E87.6 NSTEMI (non-ST elevated myocardial infarction) I21.4
[2020-01-24] MEDS: pantoprazole DR 40 mg Tablet PO (16:15)
[2020-01-24] MEDS: apixaban 5 mg Tablet PO (17:01)
[2020-01-24] MEDS: metoprolol tartrate 25 mg Tablet PO (17:01)
[2020-01-24] MEDS: atorvastatin 40 mg Tablet PO (21:30)
[2020-01-25] VITALS (11 sets, daily range): BP systolic 112–123; BP diastolic 73–77; PULSE 99–122; RESP 16–20; TEMP 36.5–36.6; O2SAT 90–95
[2020-01-25] MEDS: ipratropium-albuterol 3 mL Neb INHALATION ×3 (00:10→08:54)
[2020-01-25] MEDS: piperacillin-tazobactam 3.375 GM in sodium chloride 0.9% (plus) 50 ML IV ×2 (04:41→12:01)
[2020-01-25 06:14] LABS: Eosinophils % 0.3 %; Hematocrit 37.2 % (42.0-52.0); Hemoglobin 12.6 g/dL (11.7-16.6); Lymphocytes # 0.4 10^3/uL (0.8-4.8); Lymphocytes % 6.2 %; Mean Corpuscular HGB Conc 33.9 g/dL (30.0-36.0); Mean Corpuscular Hemoglobin 34.1 pg (28.0-34.0); Mean Corpuscular Volume 100.5 fL (80-94); Mean Platelet Volume 10.4 fL (7.4-10.4); Monocytes # 0.6 10^3/uL (0.2-0.9); Monocytes % 9.2 %; Neutrophils # 5.4 10^3/uL (1.8-7.7); Nucleated Red Blood Cells % 0 %; Platelet Count 295 10^3/cmm (130-400); Red Cell Distribution Width 13.5 % (12.1-15.1); White Blood Count 6.4 10^3/uL (4.0-10.0)
[2020-01-25 06:41] LABS: Anion Gap 13.5 (5-19); Blood Urea Nitrogen 20 mg/dL (8-23); Calcium 8.7 mg/dL (8.5-10.5); Carbon Dioxide 25 mmol/L (22-29); Chloride 108 mmol/L (98-107); Creatinine Clr Calc Pharmacy 62.8017; Glucose 124 mg/dL (65-115); Osmolality Calculated 294 mOsm/kg (285-295); Potassium 3.5 mmol/L (3.5-5.1); Sodium 143 mmol/L (136-145)
[2020-01-25] MEDS: metoprolol tartrate 25 mg Tablet PO ×2 (08:33→10:24)
[2020-01-25] MEDS: tamsulosin 0.4 mg Capsule PO (08:33)
[2020-01-25] MEDS: folic acid 1 mg Tablet PO (08:33)
[2020-01-25] MEDS: multivitamin therapeutic Tablet 1 TAB PO (08:33)
[2020-01-25] MEDS: aspirin 81 mg EC Tablet PO (08:33)
[2020-01-25] MEDS: thiamine 100 mg Tablet PO (08:33)
[2020-01-25] MEDS: apixaban 5 mg Tablet PO (08:33)
[2020-01-25] MEDS: pantoprazole DR 40 mg Tablet PO (08:33)
--- NOTE | 2020-01-25 12:03 | PM.DCS ---
Discharge Providers Date of Admission: 01/19/20 00:02 Date of Discharge: January 25, 2020 Attending Provider at Admission: Jen Lindsey MD Attending Provider at Discharge: Arsalan Oliva MD Diagnoses at Discharge Discharge Diagnosis (1) Acute respiratory failure with hypoxia: Status: Acute Problem details: Improved (2) Pneumonia: Status: Acute Problem details: Will finish 3 days of Augmentin Qualifiers: Laterality: left Lung location: lower lobe of lung Pneumonia type: due to unspecified organism Qualified Code(s): J18.9 - Pneumonia, unspecified organism (3) Sepsis: Status: Acute Problem details: Resolved Qualifiers: Acute renal failure type: unspecified Sepsis acute organ dysfunction status: with acute organ dysfunction Sepsis type: sepsis due to unspecified organism Severe sepsis acute organ dysfunction type: acute renal failure Severe sepsis shock status: without septic shock Qualified Code(s): A41.9 - Sepsis, unspecified organism; R65.20 - Severe sepsis without septic shock; N17.9 - Acute kidney failure, unspecified (4) Alcohol withdrawal: Status: Acute Problem details: Resolved (5) KALI (acute kidney injury): Status: Acute Problem details: Resolved (6) Hypokalemia: Status: Acute (7) NSTEMI (non-ST elevated myocardial infarction): Status: Acute Problem details: Continue aspirin, statin, beta-kale Reason for Visit Reason for Visit: Reason For Visit: fever x 1 week Hospital Course Hospital Course: Sherman is a 64-year-old white male who presents through the emergency department with history of fever, shortness of breath. He was found to have a left lower lobe pneumonia. He was initially placed in the ICU secondary to moderate to severe respiratory distress requiring significant amount of oxygen. He was placed on broad-spectrum antibiotics including vancomycin, Zosyn, and azithromycin. Troponin was elevated, and statin and aspirin were added. This was thought to be likely demand ischemia. During his hospital stay he had active alcohol withdrawal, requiring CIWA protocol. Confusion was noted during this time. Following this he had gradual recovery, and by the end of his hospital stay he was back to baseline mental status. During his course of hospital stay he also developed atrial fibrillation, and was placed on Eliquis as well as metoprolol which he tolerated well. Heart rate was approximately 100 on metoprolol, asymptomatic. Other testing done during his hospital stay included an echocardiogram demonstrating preserved EF, no severe valvular abnormalities, and some mild diastolic dysfunction. Head CT was performed which was negative. TSH, B12 levels were normal. Covid 19 testing was negative. All cultures were negative. By end of discharge he was able to ambulate on oxygen to the bathroom and back to the bed. He had been afebrile for quite some time. He was going to recover further at home with home health, and the care of his family. Home oxygen evaluation will be done prior to discharge. Follow-up chest x-ray will be arranged. Physical Exam Narrative: EXAM NARRATIVE: General exam no apparent distress Cardiovascular irregular, irregular without murmur Lungs diminished breath sounds bilaterally but no wheezing Abdomen is soft with positive bowel sounds Extremities trace edema Urinary Catheter Management^: Gomez Latex Free: Cath Placed During This Visit: yes Reason for Continuing Indwelling Catheter: Chronic Indwelling Urinary Catheter on Admission Urinary Catheter Date of Insertion: 01/19/20 Urinary Catheter Time of Insertion: 12:25 Discharge Data Data Completed and Pending: Completed Studies During Hospitalization Category Date Time Status CT head wo con* 7 0450 Routine Cat Scan 01/23/20 17:[address] kidney stone 7 4176 Urgent Cat Scan 01/18/20 23:25 Completed XR chest 1V tess ble [id number] Routine Exams 01/20/20 07:00 Completed XR chest 1V tess ble [id number] Routine Exams 01/21/20 07:00 Completed XR chest 1V tess ble [id number] Routine Exams 01/23/20 09:13 Completed XR chest 1V tess ble [id number] Stat Exams 01/18/20 19:49 Completed CV echo complete* [id number] Routine Ultrasound 01/19/20 10:35 Completed Labs from last 24 hours 01/25/20 01/25/20 05:42 05:42 WBC 6.4 RBC 3.70 L Hgb 12.6 Hct 37.2 L MCV 100.5 H MCH 34.1 H MCHC 33.9 RDW 13.5 Plt Count 295 MPV 10.4 Neut % (Auto) 84.0 Lymph % (Auto) 6.2 [place] % (Auto) 9.2 Eos % (Auto) 0.3 Baso % (Auto) 0.0 Neut # (Auto) 5.4 Lymph # (Auto) 0.4 L [place] # (Auto) 0.6 Eos # (Auto) 0.0 Baso # (Auto) 0.0 Nucleated RBC % (a uto) 0 Nucleated RBCs # 0.0 Sodium 143 Potassium 3.5 Chloride 108 H Carbon Dioxide 25 Anion Gap 13.5 BUN 20 Creatinine 1.2 GFR Calculation 61.0 L Glucose 124 H Calculated Osmolal ity 294 Calcium 8.7 Vitals: Last Vital Signs Temp 97.8 F 01/25/20 11:23 Pulse 102 H 01/25/20 11:23 Resp 18 01/25/20 11:23 BP 112/76 01/25/20 11:23 Pulse Ox 94 01/25/20 11:23 Discharge Plan Discharge Patient Disposition: Home, Self-Care Condition: Stable Prescriptions: New Thera 400 mcg Tablet 1 tab PO DAILY Qty: 30 RF: 0 atorvastatin 40 mg Tablet 40 mg PO BEDTIME Qty: 30 RF: 0 Eliquis 5 mg Tablet 5 mg PO BID Qty: 60 RF: 0 aspirin 81 mg Tablet,Delayed Release (Dr/Ec) 81 mg PO DAILY Qty: 30 RF: 0 pantoprazole 40 mg Tablet,Delayed Release (Dr/Ec) 40 mg PO DAILY Qty: 30 RF: 0 folic acid 1 mg Tablet 1 mg PO DAILY Qty: 30 RF: 0 thiamine mononitrate (vit B1) [Vitamin B-1 (mononitrate)] 100 mg Tablet 100 mg PO DAILY Qty: 30 RF: 0 tamsulosin 0.4 mg Capsule 0.4 mg PO DAILY Qty: 30 RF: 0 metoprolol tartrate 50 mg Tablet 50 mg PO BID Qty: 60 RF: 0 amoxicillin-pot clavulanate [Augmentin] 875-125 mg tablet 1 tab PO BID Qty: 6 RF: 0 Discontinued Tylenol-Codeine #4 300-60 mg Tablet 1 tab PO Q4H PRN (Reason: Pain) RF: 0 Discharge Orders: Discharge Order (Routine); Ordered 01/25/20 Ordered By: Arsalan Oliva Referrals: [facility] [phone] [Other] (Please contact Aba at [facility] to get services started for Therapy) Katty Luis [Staff Physician] - 4-7 days (You are scheduled to see Katty Luis at [facility] on 01/29/2020 at 9:30am. Please bring ID and medication in original bottles to appointment. Will need to establish with a provider prior to Home Health being initiated.) Discharge Diet: Cardiac Discharge Activity: Resume usual activity Activity Restrictions/Additional Instructions: Please arrange follow-up in cardiology clinic as well, 2 weeks, for follow-up of atrial fibrillation and troponin elevation. Take all medicine as prescribed No alcohol Chest x-ray PA and lateral per his primary care provider in 2 weeks for follow-up of pneumonia Home oxygenation evaluation prior to discharge Discharge Attestations Time Spent in Discharge Care*: greater than 30 min Quality Metrics Clinical Quality Measures During this hospital stay, did patient experience: None Coding Level of Care Code Acute [employer] Magistrate for g Fwd Diagnoses Acute respiratory failure with hypoxia J96.01 Pneumonia J18.9 Laterality: left Lung location: lower lobe of lung Pneumonia type: due to unspecified organism Sepsis A41.9; R65.20; N17.9 Acute renal failure type: unspecified Sepsis acute organ dysfunction status: with acute organ dysfunction Sepsis type: sepsis due to unspecified organism Severe sepsis acute organ dysfunction type: acute renal failure Severe sepsis shock status: without septic shock Alcohol withdrawal F10.239 KALI (acute kidney injury) N17.9 Hypokalemia E87.6 NSTEMI (non-ST elevated myocardial infarction) I21.4
== END 2020-01-25 15:10 | disposition home or self-care (01) | DRG 871 ==
LOC: ER 21:19 → CSU 01-19 00:20 → ICU 01-19 08:20 → MEDSURG 01-21 14:53
PROVIDERS: Family Medicine; Admitting Provider Student in an Organized Health Care Education/Training Program; Emergency Provider Emergency Medicine; Visit Provider Internal Medicine
DX: A41.9 Sepsis, unspecified organism (principal); J96.01 Acute respiratory failure with hypoxia; I21.4 Non-ST elevation (NSTEMI) myocardial infarction; J18.9 Pneumonia, unspecified organism; N17.9 Acute kidney failure, unspecified; F10.239 Alcohol dependence with withdrawal, unspecified; J44.1 Chronic obstructive pulmonary disease with (acute) exacerbation; E87.1 Hypo-osmolality and hyponatremia; I24.8 Other forms of acute ischemic heart disease; R65.20 Severe sepsis without septic shock; E87.6 Hypokalemia; F17.210 Nicotine dependence, cigarettes, uncomplicated; D69.6 Thrombocytopenia, unspecified; F41.9 Anxiety disorder, unspecified; Z79.83 Long term (current) use of bisphosphonates; Z79.82 Long term (current) use of aspirin; Z79.84 Long term (current) use of oral hypoglycemic drugs; Z79.2 Long term (current) use of antibiotics
CPT/HCPCS: 12345; 36415; 36600; 51702; 51798; 70450; 71045; 74176; 80048; 80053; 80061; 80202; 80306; 80307; 81001; 82040; 82140; 82247; 82607; 82803; 83036; 83605; 83690; 83735; 84075; 84080; 84100; 84145; 84155; 84443; 84450; 84460; 84484; 85025; 86140; 86403; 86713; 87040; 87086; 87635; 87641; 87804; 93005; 93010; 93306; 94640; 96372; 96375; 97110; 97116; 97161; 97166; 97530; 97535; 99284; A9270; J1644; J1940; J2060; J2405; J2543; J2920; J3370; J3480; J7030; J7050; J7512; Q0144

== ENCOUNTER → 2020-02-11 11:56 | Outpatient (BNVA) | payer SELFPAY | PROVIDERS: Visit Provider Internal Medicine Cardiovascular Disease | DX: I48.91 Unspecified atrial fibrillation (principal) | CPT/HCPCS: 80053; 83880 ==

== ENCOUNTER 2020-02-15 08:25 | Outpatient (CLI) | payer SELFPAY ==
--- NOTE | 2020-02-15 08:30 | XR_ITS ---
WS: [id number] PROCEDURE: XR chest 2V* [id number] CLINICAL INFORMATION: Pneumonia COMPARISON: January 23, 2020 FINDINGS: Heart: Normal cardiac silhouette. Aortic calcification. Lungs: Moderate chronic emphysematous changes. No acute pulmonary infiltrates. No consolidation or pl eural fluid. Previously described left pneumonia and pleural fluid have resolved Bones: Normal visualized bony structures. XR/XR chest 2V* [id number] IMPRESSION: 1. Previously described left pleural effusion and pneumonia essentially resolv ed. No new infiltrates. 2. Moderate chronic emphysematous changes.
== END 2020-02-15 08:26 | disposition home or self-care (01) ==
LOC: RADWPI 08:28
PROVIDERS: PCP Nurse Practitioner Family; Visit Provider Internal Medicine Cardiovascular Disease
DX: J18.9 Pneumonia, unspecified organism (principal); J90 Pleural effusion, not elsewhere classified; J43.9 Emphysema, unspecified
CPT/HCPCS: 71046

== ENCOUNTER 2022-06-21 10:01 | Outpatient (CLI) | payer MEDICARE, SELFPAY ==
--- NOTE | 2022-06-21 10:08 | CT_ITS ---
WS: [id number] LDCT LUNG CANCER SCREENING TECHNIQUE: Noncontrast CT of the chest with coronal and sagittal reformatted images. CLINICAL INFORMATION: HX OF TOBACCO USE COMPARISON: None. DLP: 81.91 mGy.cm DIvol: Mean CTDIvol: 1.60 (mGy) All CT scans at [facility] use at least one of these dose optimization techniques: automat ed exposure control; mA and/or kV adjustment per patient size (includes targeted exams where dose is matched to clinical indication); or iterative reconstruction. FINDINGS: Both lungs are well aerated. No acute pulmonary infiltrates. Slight subpleural fibrosis in the LEFT upper lobe posteriorly. Normal caliber thoracic aorta. Aortic calcification. Coronary calcification. Adrenal glands are normal. No other significant findings. CT/CT lung screening [id number] IMPRESSION: LUNG-RADS: 1-Negative FOLLOW UP: 12 Month: Continue annual screening with LDCT
== END 2022-06-21 10:02 | disposition home or self-care (01) ==
LOC: RAD 10:03
PROVIDERS: PCP Nurse Practitioner Family; Visit Provider Nurse Practitioner Family
DX: Z12.2 Encounter for screening for malignant neoplasm of respiratory organs (principal); Z87.891 Personal history of nicotine dependence
CPT/HCPCS: 71271

== ENCOUNTER → 2022-07-21 13:45 | Outpatient (BNVA) | payer MEDICARE, SELFPAY | PROVIDERS: PCP Nurse Practitioner Family; Visit Provider Internal Medicine Cardiovascular Disease | DX: R06.02 Shortness of breath (principal); I48.0 Paroxysmal atrial fibrillation; I50.31 Acute diastolic (congestive) heart failure; D69.6 Thrombocytopenia, unspecified; F17.210 Nicotine dependence, cigarettes, uncomplicated | CPT/HCPCS: 99214 ==

== ENCOUNTER 2022-11-27 14:11 | Emergency (ER) | payer MEDICARE, SELFPAY ==
[2022-11-27 14:17] VITALS: BP 151/73; PULSE 98; RESP 16; TEMP 36.8; O2SAT 90
--- NOTE | 2022-11-27 14:18 | XRR_ITS ---
PROCEDURE INFORMATION: Exam: XR Chest Exam date and time: 11/27/2022 4:04 PM Age: 67 years old Clinical indication: Cough and shortness of breath; Additional info: SOB TECHNIQUE: Imaging protocol: Radiologic exam of the chest. Views: 1 view. COMPARISON: CT lung screening [id number] 06/21/2022 10:30 AM FINDINGS: Lungs: Emphysematous changes. Minimal right upper lobe pleuroparenchymal fibrosis. Pleural spaces: Unremarkable. No pleural effusion. No pneumothorax. Heart/Mediastinum: Unremarkable. No cardiomegaly. Bones/joints: Unremarkable. XR/XR chest 1V portable [id number] IMPRESSION: 1. Negative for infiltrate. 2. Emphysematous changes. 3. Minimal right upper lobe pleuroparenchymal fibrosis.
--- NOTE | 2022-11-27 17:16 | ED_ITS ---
HPI - SOB/Dyspnea General: Chief Complaint: Shortness of Breath/Dyspnea Stated Complaint: low ox Time Seen by Provider: 11/27/22 17:16 History of Present Illness: HPI Narrative: Mr. Greenwood is a 67-year-old gentleman with history of [place], atrial fibrillation, CHF, tobaccoism presenting to the emergency department for shortness of breath. He reports respiratory illness approximately 2 to 3 weeks ago which he felt like he was recovering from until approximately 6 days ago when he had 1 day of fever. Since that time he has had mild nonproductive cough, exertional and orthopneic dyspnea, generalized malaise. Denies associated chest pain or leg swelling. Denies GI symptoms. Intensity symptoms is moderate to severe. Course has worsened. No other specific changes in health, exacerbating, or alleviating factors identified. Onset (ago): day(s) Context: recent illness Timing: progressively worsening Severity: moderate Exacerbating factors: lying flat and exertion Relieving factors: nothing Known history of: COPD (Likely, not formally diagnosed) and congestive heart failure Associated symptoms: Reports cough; Deny chest pain Review of Systems General: Reports: 10 or more systems reviewed and unremarkable except in HPI and below Card: Denies: chest pain [facility] ED PFSH: Medical History (Updated 12/05/22 @ 00:00 by ZEKE Martin) Alcohol withdrawal Resolved Atrial fibrillation CHF (congestive heart failure), NYHA class III NSTEMI (non-ST elevated myocardial infarction) Continue aspirin, statin, beta-kale Surgical History History of right hip replacement Family History Father Cancer Other Family history of premature coronary artery disease Social History Smoking and tobacco status: current every day smoker cigarettes Packs smoked per day: 1.5 Years cigarettes smoked: 40 [ Other cigarette details: 4] Alcohol intake: former Physical Exam Const: COMMON NORMALS: alert GENERAL APPEARANCE: cooperative and well developed HENMT: COMMON NORMALS: normocephalic and atraumatic HEAD & SCALP: normocephalic and atraumatic Eye: COMMON NORMALS: conjunctivae normal CONJUNCTIVA: Yes conjunctivae normal SCLERA: sclerae normal Neck/C-Spine: COMMON NORMALS: supple GENERAL: Yes trachea midline Resp: COMMON NORMALS: normal respiratory effort EFFORT & INSPECTION: Yes able to speak in complete sentences AUSCULTATION: wheezes (End expiratory scattered) Cardio: COMMON NORMALS: regular rate and regular rhythm RATE: regular rate RHYTHM: regular rhythm GI: COMMON NORMALS: Soft to palpation PALPATION: Yes Soft to palpation and No Tenderness to palpation present (GI) Extremity: GENERAL: Yes normal exam except as noted and No edema Neuro: COMMON NORMALS: moves all extremities SENSORIUM/ORIENTATION: Yes a lert and No Orientation impaired Psych: COMMON NORMALS: mental status grossly normal and Normal thought process present THOUGHT PROCESS: Normal thought process present Course 2 Vital Signs: Vital signs: Vital Signs Temperature 98.3 F 11/27/22 14:17 Pulse Rate 85 11/27/22 20:39 Respiratory Rate 16 11/27/22 21:18 Blood Pressure 126/69 11/27/22 21:18 Pulse Oximetry 91 11/27/22 21:18 Oxygen Delivery Me thod 11/27/22 20:39 Oxygen Flow Rate 2 11/27/22 20:39 MDM - SOB/Dyspnea Medical Decision Making [id number]-year-old gentleman with history of heart disease and lung disease presenting to the emergency room due to respiratory symptoms. He had a respiratory illness last week and have been improving and then worsened again. Exam as above. Patient is nontoxic. EKG notable for sinus rhythm, normal intervals, no STEMI. Labs with no significant hematologic abnormality. Metabolic panel with rest mi ld evidence of dehydration though creatinine is improved from prior. Negative range 2-hour delta troponin. BNP is only minimally elevated. Chest x-ray with emphysematous changes and fibrosis, no lobar consolidation or pneumothorax. During ED course patient treated with DuoNeb, albuterol, doxycycline, steroids. He felt significantly improved. Oxygen level remained borderline low however there is no associated respiratory distress, this is likely chronic for this patient given underlying lung disease. He was greater than 90% on discharge and felt improved. Most likely etiology of patient symptoms is multifactorial including COPD exacerbation and underlying heart failure. Plan to treat in the outpatient setting with strict return cautions. The results of ED evaluation were discussed with the patient including prescriptions and/or symptomatic cares (if applicable) including appropriate and responsible use, followup plan, and return precautions. The patient verbalized understanding and felt safe for discharge. Medical Records I reviewed the patient's medical records. Lab Data I reviewed the patient's lab results. 11/27/22 17:57 11/27/22 17:57 Labs/Radiology: Radiology Impressions Chest X-Ray 11/27/22 14:18 IMPRESSION: 1. Negative for infiltrate. 2. Emphysematous changes. 3. Minimal right upper lobe pleuroparenchymal fibrosis. Laboratory Results WBC 8.4 10^3/uL (4.0-10.0) 11/27/22 17:57 RBC 4.57 10^6/uL (4.1-5.3) 11/27/22 17:57 Hgb 16.1 g/dL (11.7-16.6) 11/27/22 17:57 Hct 46.5 % (42.0-52.0) 11/27/22 17:57 MCV 101.8 fl (80-94) H 11/27/22 17:57 MCH 35.2 pg (28.0-34.0) H 11/27/22 17:57 MCHC 34.6 g/dL (30.0-36.0) 11/27/22 17:57 RDW 12.1 % (12.1-15.1) 11/27/22 17:57 Plt Count 201 10^3/cmm (130-400) 11/27/22 17:57 MPV 9.3 fL (7.4-10.4) 11/27/22 17:57 Neut % (Auto) 69.9 % 11/27/22 17:57 Lymph % (Auto) 14.5 % 11/27/22 17:57 [place] % (Auto) 13.1 % 11/27/22 17:57 Eos % (Auto) 1.6 % 11/27/22 17:57 Baso % (Auto) 0.5 % 11/27/22 17:57 Neut # (Auto) 5.85 10^3/uL (1.8-7.7) 11/27/22 17:57 Lymph # (Auto) 1.2 10^3/uL (0.8-4.8) 11/27/22 17:57 [place] # (Auto) 1.1 10^3/uL (0.2-0.9) H 11/27/22 17:57 Eos # (Auto) 0.1 10^3/uL (0.0-0.8) 11/27/22 17:57 Baso # (Auto) 0.0 10^3/uL (0.0-0.1) 11/27/22 17:57 Nucleated RBC % (auto) 0 % 11/27/22 17:57 Nucleated RBCs # 0.0 /100WBC 11/27/22 17:57 Sodium 134 mmol/L (136-145) L 11/27/22 17:57 Potassium 4.3 mmol/L (3.5-5.1) 11/27/22 17:57 Chloride 95 mmol/L (98-107) L 11/27/22 17:57 Carbon Dioxide 30 mmol/L (22-29) H 11/27/22 17:57 Anion Gap 13.3 (5-19) 11/27/22 17:57 BUN 10 mg/dL (8-23) 11/27/22 17:57 Creatinine 0.6 mg/dL (0.7-1.2) L 11/27/22 17:57 GFR Calculation 134.4 mL/min (90-130) H 11/27/22 17:57 Glucose 94 mg/dL (65-115) 11/27/22 17:57 Calculated Osmolality 277 mOsm/kg (285-295) L 11/27/22 17:57 Calcium 9.4 mg/dL (8.5-10.5) 11/27/22 17:57 Total Bilirubin 0.4 mg/dL (0.15-1.2) 11/27/22 17:57 AST 16 U/L (0-40) 11/27/22 17:57 ALT 10 U/L (0-41) 11/27/22 17:57 Alkaline Phosphatase 57 U/L (40-130) 11/27/22 17:57 Troponin T Baseline 14 ng/L (0-15) 11/27/22 17:57 Troponin T 120 Minute 11.67 ng/L (0-15) 11/27/22 21:04 Delta Troponin T -2.33 ABS# (0-10) L 11/27/22 21:04 NT-Pro-B Natriuret Pep 392 pg/mL (0-125) H 11/27/22 17:57 Total Protein 7.3 g/dL (6.6-8.7) 11/27/22 17:57 Albumin 4.0 g/dL (3.5-5.2) 11/27/22 17:57 Globulin 3.3 g/dL (1.3-4.6) 11/27/22 17:57 Discharge Plan Discharge Patient Disposition: Home Clinical Impression: Acute exacerbation of chronic obstructive airways disease, CHF (congestive heart failure), NYHA class III Condition: Stable Prescriptions: New doxycycline hyclate 100 mg capsule 100 mg PO BID 10 Days Qty: 20 0RF albuterol sulfate 90 mcg/actuation HFA aerosol inhaler 2 inh inhalation Q4H PRN (Reason: shortness of breath or wheezing) Qty: 8.5 0RF No Action omega-3 fatty acids [Fish Oil Concentrate] 1,000 mg capsule 1,000 mg PO DAILY atorvastatin 40 mg tablet 40 mg PO .HS PRN vitamin B complex [B Complex-Vitamin B12] Tablet 1 tab PO DAILY Discharge Orders: Discharge ED (Routine); Ordered 11/27/22 Ordered By: Chito Knott Referrals: Katty Luis FNP [Primary Care Provider] - Discharge Diet: Usual diet Discharge Activity: Increase activity as tolerated Patient Instructions: Heart Failure (ED), COPD (Chronic Obstructive Pulmonary Disease) (ED), Shortness of Breath (ED) Activity Restrictions/Additional Instructions: Thank you for visiting the emergency department. You were seen and evaluated for shortness of breath. The exact cause of your symptoms is unclear though likely multifactorial including mild increase in volume status and exacerbation of underlying lung disease. I will prescribe steroids and antibiotics. Please also use your albuterol metered-dose inhaler 2 puffs every 4 hours for 24 hours followed by 2 puffs e very 6 hours for 24 hours followed by 2 puffs every 8 hours for 24 hours and then return to the normal schedule. Please follow-up with your primary care provider. Return to the emergency department for worsening symptoms, chest pain, failure to improve, or anything else that you are concerned about a feel needs emergency department evaluation. Coding Level of Care Code ED Lockstitch Hemmer for Hilary Fwwilson Exam Comprehensive
[2022-11-27 17:56] VITALS: PULSE 82; RESP 16; O2SAT 90
[2022-11-27] MEDS: albuterol 2.5 mg/3 mL Neb INHALATION ×2 (17:56→20:37)
[2022-11-27] MEDS: ipratropium 0.5 mg/2.5 mL Neb INHALATION (17:56)
[2022-11-27 18:04] VITALS: PULSE 89; RESP 16; O2SAT 90
[2022-11-27 18:05] LABS: Basophils % 0.5 %; Eosinophils # 0.1 10^3/uL (0.0-0.8); Eosinophils % 1.6 %; Hematocrit 46.5 % (42.0-52.0); Hemoglobin 16.1 g/dL (11.7-16.6); Lymphocytes # 1.2 10^3/uL (0.8-4.8); Lymphocytes % 14.5 %; Mean Corpuscular HGB Conc 34.6 g/dL (30.0-36.0); Mean Corpuscular Hemoglobin 35.2 pg (28.0-34.0); Mean Corpuscular Volume 101.8 fl (80-94); Mean Platelet Volume 9.3 fL (7.4-10.4); Monocytes # 1.1 10^3/uL (0.2-0.9); Monocytes % 13.1 %; Neutrophils # 5.85 10^3/uL (1.8-7.7); Neutrophils % 69.9 %; Nucleated Red Blood Cells % 0 %; Platelet Count 201 10^3/cmm (130-400); Red Blood Count 4.57 10^6/uL (4.1-5.3); Red Cell Distribution Width 12.1 % (12.1-15.1); White Blood Count 8.4 10^3/uL (4.0-10.0)
[2022-11-27] MEDS: doxycycline 100 MG in sodium chloride 0.9% (plus) 100 ML IV (18:18)
[2022-11-27 18:36] LABS: Alanine Aminotransferase 10 U/L (0-41); Alkaline Phosphatase 57 U/L (40-130); Anion Gap 13.3 (5-19); Aspartate Amino Transferase 16 U/L (0-40); Blood Urea Nitrogen 10 mg/dL (8-23); Calcium 9.4 mg/dL (8.5-10.5); Carbon Dioxide 30 mmol/L (22-29); Chloride 95 mmol/L (98-107); Globulin 3.3 g/dL (1.3-4.6); Glomerular Filtration Rate 134.4 mL/min (90-130); Glucose 94 mg/dL (65-115); NT Pro B Type Natriuretic Pept 392 pg/mL (0-125); Osmolality Calculated 277 mOsm/kg (285-295); Potassium 4.3 mmol/L (3.5-5.1); Sodium 134 mmol/L (136-145); Total Bilirubin 0.4 mg/dL (0.15-1.2); Total Protein 7.3 g/dL (6.6-8.7)
[2022-11-27 18:49] VITALS: BP 118/64; PULSE 86; RESP 18; O2SAT 94
[2022-11-27 20:39] VITALS: PULSE 85; RESP 20; O2SAT 90
--- NOTE | 2022-11-27 20:48 | ECG_ITS ---
[facility] Test Date: 2022-11-27 Pat Name: Sherman Greenwood Department: Room: Gender: Male Test Developer: : 1955 Requested By: Chito Knott Order Number: [id number] Kinjal MD: Kailash Meza M.D. Measurements Intervals [place] Rate: 79 P: 81 GA: 136 QRS: 77 QRSD: 74 T: 67 QT: 365 QTc: 419 Interpretive Statements SINUS RHYTHM Compared to ECG 01/23/2020 16:32:00 Atrial fibrillation no longer present Electronically Signed On 11-28-2022 11:20:30 [employer] by Kailash Meza M.D. [email or web address]
[2022-11-27 21:04] LABS: Troponin(5th) Baseline 14 ng/L (0-15)
[2022-11-27 21:18] VITALS: BP 126/69; RESP 16; O2SAT 91
[2022-11-27 22:17] LABS: Troponin 5 2HR 11.67 ng/L (0-15)
[2022-11-27 22:29] LABS: Troponin 5 2HR Delta -2.33 ABS# (0-10)
== END 2022-11-27 21:21 | disposition home or self-care (01) ==
PROVIDERS: Emergency Provider Emergency Medicine; PCP Nurse Practitioner Family
DX: J44.1 Chronic obstructive pulmonary disease with (acute) exacerbation (principal); I50.9 Heart failure, unspecified; F17.210 Nicotine dependence, cigarettes, uncomplicated; I25.2 Old myocardial infarction
CPT/HCPCS: 71045; 80053; 83880; 84484; 85025; 93005; 94640; 96365; 96375; 99285; J2930; J3490; J7613; J7644

== ENCOUNTER 2024-10-30 09:18 | Outpatient (CLI) | payer MEDICARE, SELFPAY ==
--- NOTE | 2024-10-30 09:21 | USCV_ITS ---
Timo Sherman Age: 69 Gender: M : 1955 Exam Date: 10/30/2024 09:31 Ordering Phys: Katty Luis CERTIFIED REGISTERED LOCKSMITH CERTIFIED REGISTERED LOCKSMITH Technologist: SINDI Exam Location: [facility] [place] Indication: Screening HISTORY: Diameter (cm) AP x Transverse x Length Velocity (cm/s) Waveform Prox Aorta: 2.60 x 2.40 x 63.00 Triphasic Mid Aorta: 2.00 x 2.30 x 50.90 Triphasic Distal Aorta: 1.50 x 2.00 x 51.80 Triphasic Right Iliac Prox: 0.92 x 0.92 x 134.20 Triphasic Left Iliac Prox: 0.75 x 0.75 x 89.70 Triphasic Stent Prox Landing x x Aneurysmal Sac Max x x Lt Lat Sac Dim Rt Lat Sac Dim Stent Dist Landing x x Right Iliac Stent x x Left Iliac Stent x x Right Renal Art Left Renal Art FINDINGS: CONCLUSIONS No evidence of abdominal aortic or bilateral iliac aneurysm. Manish House MD (Electronically Signed) Final Date: 30 October 2024 10:15 S
== END 2024-10-30 09:19 | disposition home or self-care (01) ==
LOC: RAD 09:19
PROVIDERS: PCP Nurse Practitioner Family; Visit Provider Nurse Practitioner Family
DX: Z13.6 Encounter for screening for cardiovascular disorders (principal)
CPT/HCPCS: 76706

== ENCOUNTER 2025-04-30 14:33 | Outpatient (CLI) | payer MEDICARE, SELFPAY ==
--- NOTE | 2025-04-30 14:45 | CT_ITS ---
WS: [id number] LDCT LUNG CANCER SCREENING TECHNIQUE: Noncontrast CT of the chest with coronal and sagittal reformatted images. CLINICAL INFORMATION: LUNG CANCER SCREENING COMPARISON: 2021 DLP: 51.51 mGy.cm DIvol: Mean CTDIvol: 0.80 (mGy) All CT scans at [facility] use at least one of these dose optimization techniques: automated exposure control; mA and/or kV adjustment per patient size (includes targeted exams where dose is matched to clinical indication); or iterative reconstruction. FINDINGS: New spiculated highly suspicious nodular opacity RIGHT lower lobe with some central cavitation. This measures approximately 1.4 cm. Surrounding spiculation. Recommend further evaluation with PET/CT and pulmonary consultation. Mild chronic emphysematous changes. Slight fibrosis in the lung apices. Normal caliber thoracic aorta. Aortic calcification. Coronary calcification. No mediastinal or hilar lymphadenopathy. No axillary lymphadenopathy. Adrenal glands are normal. Normal GE junction. CT/CT lung screening [id number] IMPRESSION: New spiculated partially cavitated nodule in the RIGHT lower lobe measuring 14 mm suspicious for neoplasm. Recommend further evaluation with PET/CT. LUNG-RADS: 4B-Suspicious FOLLOW UP: PET/CT recommended Recommend further evaluation with PET/CT.
== END 2025-04-30 14:34 | disposition home or self-care (01) ==
LOC: RAD 14:34
PROVIDERS: PCP Nurse Practitioner Family; Visit Provider Nurse Practitioner Family
DX: Z12.2 Encounter for screening for malignant neoplasm of respiratory organs (principal); Z87.891 Personal history of nicotine dependence; R91.1 Solitary pulmonary nodule; J43.8 Other emphysema; J84.10 Pulmonary fibrosis, unspecified; I70.0 Atherosclerosis of aorta; I25.10 Atherosclerotic heart disease of native coronary artery without angina pectoris
CPT/HCPCS: 71271

== ENCOUNTER → 2025-06-07 11:04 | Outpatient (BNVA) | payer MEDICARE, SELFPAY | PROVIDERS: PCP Nurse Practitioner Family; Visit Provider Internal Medicine | DX: R91.1 Solitary pulmonary nodule (principal); J44.9 Chronic obstructive pulmonary disease, unspecified; C34.90 Malignant neoplasm of unspecified part of unspecified bronchus or lung | CPT/HCPCS: 99204 ==

== ENCOUNTER 2025-06-14 11:20 | Outpatient (CLI) | payer MEDICARE, SELFPAY ==
--- NOTE | 2025-06-14 11:42 | PETR_ITS ---
PROCEDURE INFORMATION: Exam: PET/CT Whole Body Exam date and time: 06/14/2025 12:49 PM Age: 70 years old Clinical indication: Abnormal findings; New spiculated partially cavitated nodule in the right lower lobe measuring 14 mm suspicious for neoplasm; Additional info: Abnormal lung findings LABS AND CLINICAL REPORTS: Glucose: 98 mg/dl Treatment strategy for malignancy (PET staging): Initial Staging (PI) TECHNIQUE: Imaging protocol: Following at least four-hour fasting and following the injection of radiopharmaceutical, low dose CT images were obtained. Then, PET images were obtained. Attenuation corrected images were constructed using the CT scan. Fused images of PET and CT were reviewed. The standardized uptake values (SUV) reported below are maximum values within a region of interest, expressed in gm/ml. Exam includes the whole body. SUV normalization method: BodyWeight Radiopharmaceutical: 11.17 mCi F-18 FDG (Fluorodeoxyglucose), IV. Time of imaging post radiopharmaceutical administration: 46 minutes Injection site: right ac COMPARISON: CT chest ION (PULM ONLY) [id number] 05/16/2025 3:28 PM FINDINGS: Brain: Visualized brain has normal physiologic uptake. Pharynx: No abnormal uptake. Larynx: No abnormal uptake. Lungs, pleura and trachea: Hypermetabolic 1.7 x 1.1 cm (mean 1.4 cm) spiculated nodule with internal cystic change within the superior peripheral aspect of the right lower lobe, maximum SUV 6.3. Heart: Normal physiologic uptake. Mediastinal space: No abnormal uptake. Liver: No abnormal uptake. Gallbladder and biliary ducts: No abnormal uptake. Pancreas: No abnormal uptake. Spleen: No abnormal uptake. Adrenal glands: No abnormal uptake. Kidneys and ureters: Normal physiologic uptake. Stomach and bowel: No abnormal uptake. Colonic diverticulosis without evidence of diverticulitis. Reproductive: Small bilateral hydroceles. Vasculature: No abnormal uptake. Lymph nodes: No abnormal uptake. No lymphadenopathy in the head, neck, chest, abdomen, pelvis, and extremities. Skeleton: No abnormal uptake in the visualized axial and appendicular skeleton. Soft tissues: No abnormal uptake in the visualized head, neck, chest, abdomen, pelvis, and extremities. METRICS: Mediastinal blood pool: Mean SUV of 1.6 Liver uptake: Mean SUV of 2.6 PET/PET WB melanoma INITIAL [id number] IMPRESSION: 1. Hypermetabolic spiculated 1.7 x 1.1 cm right lower lobe nodule, highly suspicious for primary pulmonary neoplasm. 2. No functional or anatomic evidence of metastatic disease within the head/neck, chest, abdomen or pelvis.
== END 2025-06-14 11:21 | disposition home or self-care (01) ==
LOC: RAD 11:21
PROVIDERS: PCP Nurse Practitioner Family; Visit Provider Nurse Practitioner Family
DX: R91.1 Solitary pulmonary nodule (principal); K57.90 Diverticulosis of intestine, part unspecified, without perforation or abscess without bleeding
CPT/HCPCS: 78816; A9552